=== PATIENT | female | born 1995 | race Caucasian/White ===

== ENCOUNTER → 2019-01-17 | Outpatient (CLI) | payer BC ==
--- NOTE | 2019-01-17 17:20 | Diagnostic Imaging Report ---
PROCEDURE: CT sinuses without contrast TECHNIQUE: Multiple contiguous axial images were obtained through the sinuses without the use of intravenous contrast. Coronal and sagittal reformations were then performed. Auto Exposure Controls were utilized during the CT exam to meet ALARA standards for radiation dose reduction. INDICATION: Sinusitis and frontal region headaches FINDINGS: Paranasal sinuses are clear without evidence of air-fluid level or mural thickening. There is no evidence of bone destruction. There is rightward bowing of the nasal septum with rightward nasal septal spurring. This does result in narrowing of the right ostiomeatal complex however no obstruction of either ostiomeatal complex is seen. There is no evidence of facial inflammation or fluid collection. Temporomandibular joints appear to be unremarkable. IMPRESSION: No paranasal sinus disease. There is rightward deviation of the nasal septum. Dictated by: Dictated on workstation # [id number]
== END ==
LOC: RAD 16:38
PROVIDERS: ATTEND Otolaryngology Otolaryngology/Facial Plastic Surgery
DX: J32.9 Chronic sinusitis, unspecified (principal); J34.2 Deviated nasal septum
CPT/HCPCS: 70486

== ENCOUNTER 2019-04-19 05:38 | Outpatient (CLI) | payer BC ==
[~2019-04-19] VITALS: Ht 167.6 cm; Wt 79.4 kg
[2019-04-19] MEDS ORDERED: SERT50TA2 PO (11:50)
[2019-04-19] MEDS ORDERED: TIZA4CAP8 PO (11:50)
== END 2019-04-19 12:00 | disposition home or self-care (01) ==
LOC: PREOP 05:38
PROVIDERS: ATTEND Otolaryngology Otolaryngology/Facial Plastic Surgery
DX: Z01.818 Encounter for other preprocedural examination (principal)

== ENCOUNTER 2019-04-21 07:29 | Day surgery (SDC) | payer BC ==
[2019-04-21] VITALS (12 sets, daily range): BP systolic 102–132; BP diastolic 45–80
[~2019-04-21] VITALS: Ht 167.6 cm; Wt 79.4 kg
[~2019-04-21 07:29] MED LIST: SERT50TA2 PO; TIZA4CAP8 PO
--- OUTSIDE RECORDS SUMMARY | 2019-04-21 07:32 | XMS REPORT ---
Author Author EUSEBIO PAK Organization [facility] Address [address] [place] [address] Care Team Providers Care Cutter In Name Role Phone EUSEBIO PAK Unavailable PROBLEMS Type Condition ICD9-CM Code EYL66-II Code Onset Dates Condition Status SNOMED Code Problem Contact with and (suspected) exposure to potentially hazardous body fluids Z77.21 Active 826663389 Problem Other chronic pain G89.29 Active 56433677 Problem Major depressive disorder, single episode, unspecified F32.9 Active 14011656 Problem Obsessive-compulsive disorder with good or fair insight F42.9 Active 787345151 Problem Primary dysmenorrhea N94.4 Active 480086321 Problem YASHIRA (generalized anxiety disorder) F41.1 Active 47513872 Problem Mild episode of recurrent major depressive disorder F33.0 Active 239824154 ALLERGIES No Known Allergies ENCOUNTERS Encounter Location Date Diagnosis [place] [id number] [place] [address] Aug, [place] [id number] [place] [address] Aug, [place] [id number] [place] [address] Aug, Exercise counseling Z71.82 [place] [address] [place] [address] Aug, Exercise counseling Z71.82 [place] [address] [address] Jul, Obsessive-compulsive disorder with good or fair insight F42.9 ; Mild episode of recurrent major depressive disorder F33.0 and YASHIRA (generalized anxiety disorder) F41.1 [place] [id number] [place] [address] Jul, Exercise counseling Z71.82 [place] [id number] [place] [address] Jul, Dorsalgia, unspecified M54.9 and Other chronic pain G89.29 [place] [id number] [place] [address] Jul, [facility] [address] [address] Jul, Obsessive-compulsive disorder with good or fair insight F42.9 ; YASHIRA (generalized anxiety disorder) F41.1 and Mild episode of recurrent major depressive disorder F33.0 [place] [id number] [place] [address] Jul, Muscle spasm M62.838 ; Segmental and somatic dysfunction of cervical region M99.01 ; Segmental and somatic dysfunction of lumbar region M99.03 ; Segmental and somatic dysfunction of thoracic region M99.02 ; Segmental and somatic dysfunction of sacral region M99.04 and Somatic dysfunction of pelvis region M99.05 [place] [id number] [place] [address] Jul, Encounter for immunization Z23 [facility] [id number] [place] [address] Jul, Other fatigue R53.83 and Major depressive disorder, single episode, unspecified F32.9 [facility] [id number] [place] [address] Jun, Obsessive-compulsive disorder with good or fair insight F42.9 [facility] [id number] [place] [address] May, Obsessive-compulsive disorder with good or fair insight F42.9 ; YASHIRA (generalized anxiety disorder) F41.1 and Mild episode of recurrent major depressive disorder F33.0 [place] [id number] [place] [address] May, [place] [id number] [place] [address] Apr, Cervicalgia M54.2 [place] [id number] [place] [address] Apr, Obsessive-compulsive disorder with good or fair insight F42.9 ; YASHIRA (generalized anxiety disorder) F41.1 and Mild episode of recurrent major depressive disorder F33.0 [place] [id number] [place] [address] 13 Mar, 2018 Obsessive-compulsive disorder with good or fair insight F42.9 ; YASHIRA (generalized anxiety disorder) F41.1 and Mild episode of recurrent major depressive disorder F33.0 [place] [id number] [place] [address] 11 Mar, 2018 Obsessive-compulsive disorder with good or fair insight F42.9 [place] [id number] [place] [address] Jan, Primary dysmenorrhea N94.4 [place] [address] [address] Aug, Encounter for immunization Z23 [place] [id number] [place] [address] Aug, Dysthymia F34.1 [place] [id number] [place] [address] Jul, Dysthymia F34.1 [place] [id number] [place] [address] Jun, Contact with and (suspected) exposure to potentially hazardous body fluids Z77.21 [facility] [id number] [id number] Apr, Ecchymosis R58 [facility] [id number] [id number] Apr, Ecchymosis R58 [facility] [id number] [place] [address] 29 Jan, 2017 Insect bite (nonvenomous) of right ear, initial encounter S00.461A [place] [address] [address] 13 Dec, 2016 Contact with and (suspected) exposure to potentially hazardous body fluids Z77.21 [place] [address] [address] 08 Dec, 2016 Mixed obsessional thoughts and acts F42.2 [place] [address] [address] 02 Dec, 2016 Mixed obsessional thoughts and acts F42.2 and Needlestick injury accident, initial encounter W27.3XXA [place] [address] [address] 23 Nov, 2016 Dental examination Z01.20 [place] [address] [address] 20 Sep, 2016 Acute left-sided low back pain with left-sided sciatica M54.42 [facility] [address] [address] 08 Jun, 2016 Needle stick injury, initial encounter W27.3XXA IMMUNIZATIONS No Known Immunizations SOCIAL HISTORY Never Assessed REASON FOR VISIT back pain f/u Pt in for f/u on back pain and has a sinus question WENCESLAO Brown PLAN OF CARE Activity Details Follow Up prn Reason: VITAL SIGNS Height 65 in 2018-08-18 Weight 168.3 lbs 2018-08-18 Temperature 98.2 degrees Fahrenheit 2018-08-18 Heart Rate 76 bpm 2018-08-18 Respiratory Rate 18 2018-08-18 BMI 28.00 kg/m2 2018-08-18 Blood pressure systolic 128 mmHg 2018-08-18 Blood pressure diastolic 66 mmHg 2018-08-18 MEDICATIONS Medication Instructions Dosage Frequency Start Date End Date Duration Status Naprosyn 500 mg Orally every 12 hrs 1 tablet with food or milk starting 1 day before menstrual cycle and continue for 3-4 days 12h 27 Jan, 2018 Active Tizanidine HCl 4 MG Orally Three times a day 1 tablet as needed 8h 09 Jul, 2018 Jan, 30 days Active Sertraline HCl 50 MG Orally nightly 1 tablet May, Active RESULTS Name Result Date Reference Range Xray : Spine, Thoracic 2 views (IN HOUSE) 2018-08-18 Xray : Spine, Lumbar 2-3 views (IN HOUSE) 2018-08-18 Xray : Spine, Cervical (IN HOUSE) 2018-08-18 PROCEDURES Procedure Date Ordered Result Body Site X-RAY EXAM OF NECK SPINE Aug 18, 2018 X-RAY EXAM OF LOWER SPINE Aug 18, 2018 X-RAY EXAM OF THORACIC SPINE Aug 18, 2018 INSTRUCTIONS MEDICATIONS ADMINISTERED No Known Medications MEDICAL (GENERAL) HISTORY Type Description Date Surgical History Tonsilectomy 2014
--- OUTSIDE RECORDS SUMMARY | 2019-04-21 07:32 | XMS REPORT ---
Author Author HAYLEY BERNABE Organization [facility] Address [address] [place] [address] Care Team Providers Care Reference Investigator Name Role Phone HAYLEY, BERNABE Unavailable PROBLEMS Type Condition ICD9-CM Code XNU76-IK Code Onset Dates Condition Status SNOMED Code Problem Contact with and (suspected) exposure to potentially hazardous body fluids Z77.21 Active 829533162 Problem Other chronic pain G89.29 Active 08822010 Problem Major depressive disorder, single episode, unspecified F32.9 Active 35279802 Problem Obsessive-compulsive disorder with good or fair insight F42.9 Active 967308432 Problem Primary dysmenorrhea N94.4 Active 124057798 Problem YASHIRA (generalized anxiety disorder) F41.1 Active 00544938 Problem Mild episode of recurrent major depressive disorder F33.0 Active 553488470 ALLERGIES No Known Allergies ENCOUNTERS Encounter Location Date Diagnosis [facility] [address] [address] Aug, [facility] [id number] [place] [address] Aug, [place] [address] [address] Aug, Exercise counseling Z71.82 [facility] [id number] [place] [address] Aug, Exercise counseling Z71.82 [place] [address] [address] Jul, Obsessive-compulsive disorder with good or fair insight F42.9 ; Mild episode of recurrent major depressive disorder F33.0 and YASHIRA (generalized anxiety disorder) F41.1 [facility] [id number] [place] [address] Jul, Exercise counseling Z71.82 [facility] [id number] [place] [address] Jul, Dorsalgia, unspecified M54.9 and Other chronic pain G89.29 [facility] [id number] [place] [address] Jul, [facility] [id number] [place] [address] Jul, Obsessive-compulsive disorder with good or fair insight F42.9 ; YASHIRA (generalized anxiety disorder) F41.1 and Mild episode of recurrent major depressive disorder F33.0 [place] [id number] [place] [address] Jul, Muscle spasm M62.838 ; Segmental and somatic dysfunction of cervical region M99.01 ; Segmental and somatic dysfunction of lumbar region M99.03 ; Segmental and somatic dysfunction of thoracic region M99.02 ; Segmental and somatic dysfunction of sacral region M99.04 and Somatic dysfunction of pelvis region M99.05 [facility] [id number] [place] [address] Jul, Encounter for immunization Z23 [facility] [id number] [place] [address] Jul, Other fatigue R53.83 and Major depressive disorder, single episode, unspecified F32.9 [facility] [id number] [place] [address] Jun, Obsessive-compulsive disorder with good or fair insight F42.9 [facility] [id number] [place] [address] May, Obsessive-compulsive disorder with good or fair insight F42.9 ; YASHIRA (generalized anxiety disorder) F41.1 and Mild episode of recurrent major depressive disorder F33.0 [facility] [id number] [place] [address] May, [facility] [id number] [place] [address] Apr, Cervicalgia M54.2 [place] [id number] [place] [address] Apr, Obsessive-compulsive disorder with good or fair insight F42.9 ; YASHIRA (generalized anxiety disorder) F41.1 and Mild episode of recurrent major depressive disorder F33.0 [place] [id number] [place] [address] 13 Mar, 2018 Obsessive-compulsive disorder with good or fair insight F42.9 ; YASHIRA (generalized anxiety disorder) F41.1 and Mild episode of recurrent major depressive disorder F33.0 [place] [id number] [place] [address] 11 Mar, 2018 Obsessive-compulsive disorder with good or fair insight F42.9 [place] [id number] [place] [address] Jan, Primary dysmenorrhea N94.4 [place] [id number] [place] [address] Aug, Encounter for immunization Z23 [place] [id number] [place] [address] Aug, Dysthymia F34.1 [place] [id number] [place] [address] Jul, Dysthymia F34.1 [place] [id number] [place] [address] Jun, Contact with and (suspected) exposure to potentially hazardous body fluids Z77.21 [facility] [id number] [id number] Apr, Ecchymosis R58 [facility] [id number] [facility] [id number] Apr, Ecchymosis R58 [facility] [id number] [place] [address] Jan, Insect bite (nonvenomous) of right ear, initial encounter S00.461A [place] [address] [address] 13 Dec, 2016 Contact with and (suspected) exposure to potentially hazardous body fluids Z77.21 [place] [address] [address] 08 Dec, 2016 Mixed obsessional thoughts and acts F42.2 [place] [address] [address] 02 Dec, 2016 Mixed obsessional thoughts and acts F42.2 and Needlestick injury accident, initial encounter W27.3XXA [place] [address] [address] 23 Nov, 2016 Dental examination Z01.20 [place] [address] [address] Sep, Acute left-sided low back pain with left-sided sciatica M54.42 [facility] [address] [address] 08 Jun, 2016 Needle stick injury, initial encounter W27.3XXA IMMUNIZATIONS No Known Immunizations SOCIAL HISTORY Never Assessed REASON FOR VISIT f/u Luciano PLAN OF CARE Activity Details Follow Up 4 Weeks Reason: f/u VITAL SIGNS Height 65 in 2018-08-25 Weight 166.4 lbs 2018-08-25 Heart Rate 120 bpm 2018-08-25 Respiratory Rate 20 2018-08-25 BMI 27.69 kg/m2 2018-08-25 Blood pressure systolic 116 mmHg 2018-08-25 Blood pressure diastolic 68 mmHg 2018-08-25 MEDICATIONS Medication Instructions Dosage Frequency Start Date End Date Duration Status Tizanidine HCl 4 MG Orally Three times a day 1 tablet as needed 8h Jul, Jan, 30 days Active Naprosyn 500 mg Orally every 12 hrs 1 tablet with food or milk starting 1 day before menstrual cycle and continue for 3-4 days 12h Jan, Active Zoloft 100 mg Orally Once a day 1 tablet 24h Jul, 30 day(s) Active RESULTS No Results PROCEDURES No Known procedures INSTRUCTIONS MEDICATIONS ADMINISTERED No Known Medications MEDICAL (GENERAL) HISTORY Type Description Date Surgical History Tonsilectomy 2015
--- OUTSIDE RECORDS SUMMARY | 2019-04-21 07:32 | XMS REPORT ---
Author Author CAROLIN LUIS ALBERTO Organization [facility] Address [address] [place] [address] Care Team Providers Care Mill Oiler Name Role Phone AKOSUALIO LUIS ALBERTO Unavailable PROBLEMS Type Condition ICD9-CM Code PLL56-TA Code Onset Dates Condition Status SNOMED Code Problem Contact with and (suspected) exposure to potentially hazardous body fluids Z77.21 Active 925028297 Problem Other chronic pain G89.29 Active 06705992 Problem Major depressive disorder, single episode, unspecified F32.9 Active 50650837 Problem Obsessive-compulsive disorder with good or fair insight F42.9 Active 515635685 Problem Primary dysmenorrhea N94.4 Active 188361398 Problem YASHIRA (generalized anxiety disorder) F41.1 Active 60175864 Problem Mild episode of recurrent major depressive disorder F33.0 Active 692873789 ALLERGIES No Information ENCOUNTERS Encounter Location Date Diagnosis [place] [address] [place] [address] Aug, Obsessive-compulsive disorder with good or fair insight F42.9 ; YASHIRA (generalized anxiety disorder) F41.1 and Mild episode of recurrent major depressive disorder F33.0 [place] [address] [place] [address] 16 Aug, 2018 Exercise counseling Z71.82 [facility] [address] [place] [address] Aug, Exercise counseling Z71.82 [place] [id number] [place] [address] Aug, Exercise counseling Z71.82 [place] [address] [place] [address] Aug, Exercise counseling Z71.82 [place] [id number] [place] [address] Jul, Obsessive-compulsive disorder with good or fair insight F42.9 ; Mild episode of recurrent major depressive disorder F33.0 and YASHIRA (generalized anxiety disorder) F41.1 [facility] [id number] [place] [address] Jul, Exercise counseling Z71.82 [place] [address] [address] Jul, Dorsalgia, unspecified M54.9 and Other chronic pain G89.29 [place] [id number] [place] [address] Jul, [place] [id number] [place] [address] Jul, Obsessive-compulsive disorder with good or fair insight F42.9 ; YASHIRA (generalized anxiety disorder) F41.1 and Mild episode of recurrent major depressive disorder F33.0 [place] [id number] [place] [address] Jul, Muscle spasm M62.838 ; Segmental and somatic dysfunction of cervical region M99.01 ; Segmental and somatic dysfunction of lumbar region M99.03 ; Segmental and somatic dysfunction of thoracic region M99.02 ; Segmental and somatic dysfunction of sacral region M99.04 and Somatic dysfunction of pelvis region M99.05 [facility] [id number] [place] [address] Jul, Encounter for immunization Z23 [facility] [id number] [place] [address] Jul, Other fatigue R53.83 and Major depressive disorder, single episode, unspecified F32.9 [facility] [id number] [place] [address] Jun, Obsessive-compulsive disorder with good or fair insight F42.9 [facility] [id number] [place] [address] May, Obsessive-compulsive disorder with good or fair insight F42.9 ; YASHIRA (generalized anxiety disorder) F41.1 and Mild episode of recurrent major depressive disorder F33.0 [place] [id number] [place] [address] May, [place] [id number] [place] [address] Apr, Cervicalgia M54.2 [place] [address] [address] Apr, Obsessive-compulsive disorder with good or fair insight F42.9 ; YASHIRA (generalized anxiety disorder) F41.1 and Mild episode of recurrent major depressive disorder F33.0 [place] [id number] [place] [address] 13 Mar, 2018 Obsessive-compulsive disorder with good or fair insight F42.9 ; YASHIRA (generalized anxiety disorder) F41.1 and Mild episode of recurrent major depressive disorder F33.0 [place] [id number] [place] [address] Mar, Obsessive-compulsive disorder with good or fair insight F42.9 [place] [id number] [place] [address] Jan, Primary dysmenorrhea N94.4 [place] [id number] [place] [address] Aug, Encounter for immunization Z23 [place] [id number] [place] [address] 02 Aug, 2017 Dysthymia F34.1 [place] [address] [address] 05 Jul, 2017 Dysthymia F34.1 [place] [id number] [place] [address] 22 Jun, 2017 Contact with and (suspected) exposure to potentially hazardous body fluids Z77.21 [place] [id number] [id number] Apr, Ecchymosis R58 [facility] [id number] [place] [id number] Apr, Ecchymosis R58 [facility] [id number] [place] [address] Jan, Insect bite (nonvenomous) of right ear, initial encounter S00.461A [facility] [address] [address] 13 Dec, 2016 Contact with and (suspected) exposure to potentially hazardous body fluids Z77.21 [place] [address] [address] 08 Dec, 2016 Mixed obsessional thoughts and acts F42.2 [place] [address] [address] Dec, Mixed obsessional thoughts and acts F42.2 and Needlestick injury accident, initial encounter W27.3XXA [place] [address] [address] Nov, Dental examination Z01.20 [place] [id number] [place] [address] Sep, Acute left-sided low back pain with left-sided sciatica M54.42 [facility] [id number] [place] [address] 08 Jun, 2016 Needle stick injury, initial encounter W27.3XXA IMMUNIZATIONS No Known Immunizations SOCIAL HISTORY Never Assessed REASON FOR VISIT f/u Kyle rodriguez ma PLAN OF CARE Activity Details Follow Up 4 Weeks Reason: VITAL SIGNS Height 65 in 2018-09-23 Heart Rate 88 bpm 2018-09-23 Respiratory Rate 20 2018-09-23 Blood pressure systolic 130 mmHg 2018-09-23 Blood pressure diastolic 72 mmHg 2018-09-23 MEDICATIONS Medication Instructions Dosage Frequency Start Date End Date Duration Status Zoloft 100 mg Orally Once a day 1.5 tablet 24h Jul, 30 days Active Naprosyn 500 mg Orally every 12 hrs 1 tablet with food or milk starting 1 day before menstrual cycle and continue for 3-4 days 12h Jan, Active Tizanidine HCl 4 MG Orally Three times a day 1 tablet as needed 8h Jul, Jan, 30 days Active RESULTS No Results PROCEDURES No Known procedures INSTRUCTIONS MEDICATIONS ADMINISTERED No Known Medications MEDICAL (GENERAL) HISTORY Type Description Date Surgical History Tonsilectomy 2014
--- OUTSIDE RECORDS SUMMARY | 2019-04-21 07:32 | XMS REPORT ---
Author Author EUSEBIO PAK Organization [facility] Address [address] [place] [address] Care Team Providers Care Brick Chimney Supervisor Name Role Phone EUSEBIO PAK Unavailable PROBLEMS Type Condition ICD9-CM Code PEE27-YE Code Onset Dates Condition Status SNOMED Code Problem Contact with and (suspected) exposure to potentially hazardous body fluids Z77.21 Active 405772242 Problem Other chronic pain G89.29 Active 79861349 Problem Major depressive disorder, single episode, unspecified F32.9 Active 78726267 Problem Obsessive-compulsive disorder with good or fair insight F42.9 Active 564337990 Problem Primary dysmenorrhea N94.4 Active 992903582 Problem YASHIRA (generalized anxiety disorder) F41.1 Active 17268783 Problem Mild episode of recurrent major depressive disorder F33.0 Active [id number] ALLERGIES No Information ENCOUNTERS Encounter Location Date Diagnosis [place] [id number] [place] [phone] Aug, [place] [id number] [place] [address] Aug, [place] [id number] [place] [address] Aug, Exercise counseling Z71.82 [place] [id number] [place] [address] Aug, Exercise counseling Z71.82 [place] [address] [address] Jul, Obsessive-compulsive disorder with good or fair insight F42.9 ; Mild episode of recurrent major depressive disorder F33.0 and YASHIRA (generalized anxiety disorder) F41.1 [place] [id number] [place] [address] Jul, Exercise counseling Z71.82 [facility] [id number] [place] [address] Jul, Dorsalgia, unspecified M54.9 and Other chronic pain G89.29 [facility] [id number] [place] [address] Jul, [facility] [id number] [place] [address] Jul, Obsessive-compulsive disorder with good or fair insight F42.9 ; YASHIRA (generalized anxiety disorder) F41.1 and Mild episode of recurrent major depressive disorder F33.0 [place] [id number] [place] [address] Jul, Muscle spasm M62.838 ; Segmental and somatic dysfunction of cervical region M99.01 ; Segmental and somatic dysfunction of lumbar region M99.03 ; Segmental and somatic dysfunction of thoracic region M99.02 ; Segmental and somatic dysfunction of sacral region M99.04 and Somatic dysfunction of pelvis region M99.05 [facility] [id number] [place] [address] Jul, Encounter for immunization Z23 [facility] [id number] [place] [address] Jul, Other fatigue R53.83 and Major depressive disorder, single episode, unspecified F32.9 [facility] [id number] [place] [address] Jun, Obsessive-compulsive disorder with good or fair insight F42.9 [facility] [id number] [place] [address] May, Obsessive-compulsive disorder with good or fair insight F42.9 ; YASHIRA (generalized anxiety disorder) F41.1 and Mild episode of recurrent major depressive disorder F33.0 [facility] [id number] [place] [address] May, [facility] [id number] [place] [address] Apr, Cervicalgia M54.2 [place] [id number] [place] [address] Apr, Obsessive-compulsive disorder with good or fair insight F42.9 ; YASHIRA (generalized anxiety disorder) F41.1 and Mild episode of recurrent major depressive disorder F33.0 [place] [id number] [place] [address] 13 Mar, 2018 Obsessive-compulsive disorder with good or fair insight F42.9 ; YASHIRA (generalized anxiety disorder) F41.1 and Mild episode of recurrent major depressive disorder F33.0 [place] [id number] [place] [address] 11 Mar, 2018 Obsessive-compulsive disorder with good or fair insight F42.9 [place] [id number] [place] [address] Jan, Primary dysmenorrhea N94.4 [place] [id number] [place] [address] Aug, Encounter for immunization Z23 [place] [id number] [place] [address] Aug, Dysthymia F34.1 [place] [id number] [place] [address] Jul, Dysthymia F34.1 [place] [id number] [place] [address] Jun, Contact with and (suspected) exposure to potentially hazardous body fluids Z77.21 [facility] [id number] [id number] Apr, [facility]ymosis R58 [facility] [id number] [place] [id number] Apr, Ecchymosis R58 [facility] [id number] [place] [address] Jan, Insect bite (nonvenomous) of right ear, initial encounter S00.461A [place] [address] [address] 13 Dec, 2016 Contact with and (suspected) exposure to potentially hazardous body fluids Z77.21 [place] [address] [address] 08 Dec, 2016 Mixed obsessional thoughts and acts F42.2 [place] [address] [address] 02 Dec, 2016 Mixed obsessional thoughts and acts F42.2 and Needlestick injury accident, initial encounter W27.3XXA [place] [id number] [place] [address] 23 Nov, 2016 Dental examination Z01.20 [place] [address] [address] Sep, Acute left-sided low back pain with left-sided sciatica M54.42 [facility] [address] [address] 08 Jun, 2016 Needle stick injury, initial encounter W27.3XXA IMMUNIZATIONS No Known Immunizations SOCIAL HISTORY Never Assessed REASON FOR VISIT back pain PLAN OF CARE Activity Details Follow Up 1 Week Reason: VITAL SIGNS MEDICATIONS Unknown Medications RESULTS No Results PROCEDURES No Known procedures INSTRUCTIONS MEDICATIONS ADMINISTERED No Known Medications MEDICAL (GENERAL) HISTORY Type Description Date Surgical History Tonsilectomy 2014
--- OUTSIDE RECORDS SUMMARY | 2019-04-21 07:32 | XMS REPORT ---
Author Author PAM PHIPPS [facility] Address [address] [place] [address] Care Team Providers Care Glove Maker Name Role Phone PAM PHIPPS Unavailable PROBLEMS Type Condition ICD9-CM Code QHE21-WT Code Onset Dates Condition Status SNOMED Code Problem Contact with and (suspected) exposure to potentially hazardous body fluids Z77.21 Active 215684435 Problem Primary dysmenorrhea N94.4 Active 409672865 Problem Other chronic pain G89.29 Active 97260287 Problem Chronic sinusitis, unspecified location J32.9 Active 92634378 Problem Obsessive-compulsive disorder with good or fair insight F42.9 Active 981972885 Problem Mild episode of recurrent major depressive disorder F33.0 Active 201752286 Problem YASHIRA (generalized anxiety disorder) F41.1 Active 08249746 Problem Major depressive disorder, single episode, unspecified F32.9 Active 49119756 ALLERGIES No Information ENCOUNTERS Encounter Location Date Diagnosis [place] [id number] [place] [phone] Jan, [place] [id number] [place] [address] Jan, Cough R05 [place] [id number] [place] [address] Dec, Elevated LFTs R94.5 [place] [id number] [place] [address] Dec, Cervicalgia M54.2 and Cervical adenopathy R59.0 [place] [id number] [place] [address] Nov, Visit for TB skin test Z11.1 [place] [address] [place] [address] 06 Nov, 2018 Deviated septum J34.2 and Chronic sinusitis, unspecified location J32.9 [place] [address] [address] Oct, Obsessive-compulsive disorder with good or fair insight F42.9 ; YASHIRA (generalized anxiety disorder) F41.1 and Mild episode of recurrent major depressive disorder F33.0 [place] [address] [address] Oct, Muscle spasm M62.838 [place] [address] [address] Aug, Obsessive-compulsive disorder with good or fair insight F42.9 ; YASHIRA (generalized anxiety disorder) F41.1 and Mild episode of recurrent major depressive disorder F33.0 [place] [address] [address] 16 Aug, 2018 Exercise counseling Z71.82 [place] [address] [address] Aug, Exercise counseling Z71.82 [place] [address] [address] Aug, Exercise counseling Z71.82 [place] [id number] [place] [address] Aug, Exercise counseling Z71.82 [place] [address] [address] Jul, Obsessive-compulsive disorder with good or fair insight F42.9 ; Mild episode of recurrent major depressive disorder F33.0 and YASHIRA (generalized anxiety disorder) F41.1 [place] [id number] [place] [address] Jul, Exercise counseling Z71.82 [place] [address] [address] Jul, Dorsalgia, unspecified M54.9 and Other chronic pain G89.29 [facility] [place] [id number] [place] [address] Jul, [facility] [place] [id number] [place] [address] Jul, Obsessive-compulsive disorder with good or fair insight F42.9 ; YASHIRA (generalized anxiety disorder) F41.1 and Mild episode of recurrent major depressive disorder F33.0 [facility] [place] [id number] [place] [address] Jul, Muscle spasm M62.838 ; Segmental and somatic dysfunction of cervical region M99.01 ; Segmental and somatic dysfunction of lumbar region M99.03 ; Segmental and somatic dysfunction of thoracic region M99.02 ; Segmental and somatic dysfunction of sacral region M99.04 and Somatic dysfunction of pelvis region M99.05 [place] [id number] [place] [address] Jul, Encounter for immunization Z23 [facility] [id number] [place] [address] Jul, Other fatigue R53.83 and Major depressive disorder, single episode, unspecified F32.9 [facility] [place] [id number] [place] [address] Jun, Obsessive-compulsive disorder with good or fair insight F42.9 [facility] [place] [id number] [place] [address] May, Obsessive-compulsive disorder with good or fair insight F42.9 ; YASHIRA (generalized anxiety disorder) F41.1 and Mild episode of recurrent major depressive disorder F33.0 [facility] [place] [id number] [place] [address] May, [facility] [place] [id number] [place] [address] Apr, Cervicalgia M54.2 [facility] [place] [address] [address] 10 Apr, 2018 Obsessive-compulsive disorder with good or fair insight F42.9 ; YASHIRA (generalized anxiety disorder) F41.1 and Mild episode of recurrent major depressive disorder F33.0 [facility] [place] [id number] [place] [address] 13 Mar, 2018 Obsessive-compulsive disorder with good or fair insight F42.9 ; YASHIRA (generalized anxiety disorder) F41.1 and Mild episode of recurrent major depressive disorder F33.0 [facility] [place] [id number] [place] [address] 11 Mar, 2018 Obsessive-compulsive disorder with good or fair insight F42.9 [facility] [place] [id number] [place] [address] 27 Jan, 2018 Primary dysmenorrhea N94.4 [place] [address] [address] Aug, Encounter for immunization Z23 [facility] [place] [id number] [place] [address] Aug, Dysthymia F34.1 [place] [id number] [place] [address] Jul, Dysthymia F34.1 [place] [id number] [place] [address] Jun, Contact with and (suspected) exposure to potentially hazardous body fluids Z77.21 [facility] [id number] [id number] Apr, Ecchymosis R58 [facility] [address] [id number] [id number] Apr, Ecchymosis R58 [facility] [address] [place] [address] Jan, Insect bite (nonvenomous) of right ear, initial encounter S00.461A [facility] [place] [id number] [address] 13 Dec, 2016 Contact with and (suspected) exposure to potentially hazardous body fluids Z77.21 [facility] [place] [id number] [place] [address] 08 Dec, 2016 Mixed obsessional thoughts and acts F42.2 [place] [id number] [place] [address] 02 Dec, 2016 Mixed obsessional thoughts and acts F42.2 and Needlestick injury accident, initial encounter W27.3XXA [facility] [place] [id number] [place] [address] 23 Nov, 2016 Dental examination Z01.20 [place] [id number] [place] [address] Sep, Acute left-sided low back pain with left-sided sciatica M54.42 [facility] [address] [place] [address] 08 Jun, 2016 Needle stick injury, initial encounter W27.3XXA IMMUNIZATIONS No Known Immunizations SOCIAL HISTORY Never Assessed REASON FOR VISIT TB skin test- Silvestre Bhatti RN PLAN OF CARE Activity Details Follow Up 48-72 hours Reason:TB read VITAL SIGNS MEDICATIONS Unknown Medications RESULTS No Results PROCEDURES Procedure Date Ordered Result Body Site TB INTRADERMAL TEST Dec 15, 2018 TB INTRADERMAL 2018-12-15 N/A INSTRUCTIONS MEDICATIONS ADMINISTERED No Known Medications MEDICAL (GENERAL) HISTORY Type Description Date Medical History OCD Medical History PANDAS Medical History Segmented and somatic dysfunction of cervical, lumbar, thoracic, sacral spine Medical History Somatic dysfunction of the sacral region Medical History Muscle Spasm Surgical History Tonsilectomy 2014
--- OUTSIDE RECORDS SUMMARY | 2019-04-21 07:32 | XMS REPORT ---
Author Author EUSEBIO PAK Organization [facility] Address [address] [place] [address] Care Team Providers Care Financial Reporting Specialist Name Role Phone EUSEBIO PAK Unavailable PROBLEMS Type Condition ICD9-CM Code FWG95-VF Code Onset Dates Condition Status SNOMED Code Problem Contact with and (suspected) exposure to potentially hazardous body fluids Z77.21 Active 784588144 Problem Other chronic pain G89.29 Active 88561089 Problem Major depressive disorder, single episode, unspecified F32.9 Active 65508441 Problem Obsessive-compulsive disorder with good or fair insight F42.9 Active 991893849 Problem Primary dysmenorrhea N94.4 Active 091216024 Problem YASHIRA (generalized anxiety disorder) F41.1 Active 43134737 Problem Mild episode of recurrent major depressive disorder F33.0 Active 118257854 ALLERGIES No Information ENCOUNTERS Encounter Location Date Diagnosis [place] [id number] [place] [address] 29 Aug, 2018 [facility] [id number] [place] [address] 16 Aug, 2018 [place] [id number] [place] [address] 12 Aug, 2018 Exercise counseling Z71.82 [facility] [id number] [place] [address] 05 Aug, 2018 Exercise counseling Z71.82 [place] [address] [address] 02 Aug, 2018 Exercise counseling Z71.82 [facility] [id number] [place] [address] Jul, Obsessive-compulsive disorder with good or fair insight F42.9 ; Mild episode of recurrent major depressive disorder F33.0 and YASHIRA (generalized anxiety disorder) F41.1 [facility] [id number] [place] [address] Jul, Exercise counseling Z71.82 [facility] [id number] [place] [address] Jul, Dorsalgia, unspecified M54.9 and Other chronic pain G89.29 [place] [address] [address] Jul, [place] [id number] [place] [address] Jul, Obsessive-compulsive disorder with good or fair insight F42.9 ; YASHIRA (generalized anxiety disorder) F41.1 and Mild episode of recurrent major depressive disorder F33.0 [place] [address] [address] Jul, Muscle spasm M62.838 ; Segmental and somatic dysfunction of cervical region M99.01 ; Segmental and somatic dysfunction of lumbar region M99.03 ; Segmental and somatic dysfunction of thoracic region M99.02 ; Segmental and somatic dysfunction of sacral region M99.04 and Somatic dysfunction of pelvis region M99.05 [facility] [id number] [place] [address] Jul, Encounter for immunization Z23 [facility] [id number] [place] [address] Jul, Other fatigue R53.83 and Major depressive disorder, single episode, unspecified F32.9 [facility] [id number] [place] [address] Jun, Obsessive-compulsive disorder with good or fair insight F42.9 [facility] [id number] [place] [address] May, Obsessive-compulsive disorder with good or fair insight F42.9 ; YASHIRA (generalized anxiety disorder) F41.1 and Mild episode of recurrent major depressive disorder F33.0 [facility] [address] [address] May, [facility] [id number] [place] [address] Apr, Cervicalgia M54.2 [facility] [id number] [place] [address] Apr, Obsessive-compulsive disorder with good or fair insight F42.9 ; YASHIRA (generalized anxiety disorder) F41.1 and Mild episode of recurrent major depressive disorder F33.0 [facility] [id number] [place] [address] 13 Mar, 2018 Obsessive-compulsive disorder with good or fair insight F42.9 ; YASHIRA (generalized anxiety disorder) F41.1 and Mild episode of recurrent major depressive disorder F33.0 [place] [id number] [place] [address] Mar, Obsessive-compulsive disorder with good or fair insight F42.9 [place] [id number] [place] [address] Jan, Primary dysmenorrhea N94.4 [place] [id number] [place] [address] Aug, Encounter for immunization Z23 [facility] [id number] [place] [address] Aug, Dysthymia F34.1 [place] [address] [place] [address] Jul, Dysthymia F34.1 [place] [address] [place] [address] Jun, Contact with and (suspected) exposure to potentially hazardous body fluids Z77.21 [facility] [id number] [id number] Apr, Ecchymosis R58 [facility] [address] [id number] [id number] Apr, Ecchymosis R58 [facility] [id number] [place] [address] Jan, Insect bite (nonvenomous) of right ear, initial encounter S00.461A [place] [address] [place] [address] 13 Dec, 2016 Contact with and (suspected) exposure to potentially hazardous body fluids Z77.21 [place] [address] [place] [address] 08 Dec, 2016 Mixed obsessional thoughts and acts F42.2 [place] [address] [address] 02 Dec, 2016 Mixed obsessional thoughts and acts F42.2 and Needlestick injury accident, initial encounter W27.3XXA [place] [address] [place] [address] Nov, Dental examination Z01.20 [place] [address] [place] [address] Sep, Acute left-sided low back pain with left-sided sciatica M54.42 [facility] [id number] [place] [address] 08 Jun, 2016 Needle stick injury, initial encounter W27.3XXA IMMUNIZATIONS No Known Immunizations SOCIAL HISTORY Never Assessed REASON FOR VISIT pain mgmt PLAN OF CARE Activity Details Follow Up 2 - 3 Days Reason: VITAL SIGNS MEDICATIONS Unknown Medications RESULTS No Results PROCEDURES No Known procedures INSTRUCTIONS MEDICATIONS ADMINISTERED No Known Medications MEDICAL (GENERAL) HISTORY Type Description Date Surgical History Tonsilectomy 2014
--- OUTSIDE RECORDS SUMMARY | 2019-04-21 07:33 | XMS REPORT ---
Author Author HAYLEY BERNABE Organization [facility] Address [address] [place] [address] Care Team Providers Care Cigar Maker Name Role Phone HAYLEY, BERNABE Unavailable PROBLEMS Type Condition ICD9-CM Code [id number] Code Onset Dates Condition Status SNOMED Code Problem Contact with and (suspected) exposure to potentially hazardous body fluids Z77.21 Active 329051317 Problem Other chronic pain G89.29 Active 88666296 Problem Major depressive disorder, single episode, unspecified F32.9 Active 63193353 Problem Obsessive-compulsive disorder with good or fair insight F42.9 Active 362408147 Problem Primary dysmenorrhea N94.4 Active 706666252 Problem YASHIRA (generalized anxiety disorder) F41.1 Active 52197494 Problem Mild episode of recurrent major depressive disorder F33.0 Active 653749493 ALLERGIES No Information ENCOUNTERS Encounter Location Date Diagnosis [facility] [address] [address] Jul, [facility] [address] [address] Jul, [facility] [address] [address] Jul, Dorsalgia, unspecified M54.9 and Other chronic pain G89.29 [facility] [id number] [place] [address] Jul, [facility] [address] [address] 09 Jul, 2018 Obsessive-compulsive disorder with good or fair insight F42.9 ; YASHIRA (generalized anxiety disorder) F41.1 and Mild episode of recurrent major depressive disorder F33.0 [facility] [address] [place] [address] Jul, Muscle spasm M62.838 ; Segmental and somatic dysfunction of cervical region M99.01 ; Segmental and somatic dysfunction of lumbar region M99.03 ; Segmental and somatic dysfunction of thoracic region M99.02 ; Segmental and somatic dysfunction of sacral region M99.04 and Somatic dysfunction of pelvis region M99.05 [facility] [id number] [place] [address] Jul, Encounter for immunization Z23 [facility] [address] [address] Jul, Other fatigue R53.83 and Major depressive disorder, single episode, unspecified F32.9 [place] [id number] [place] [address] Jun, Obsessive-compulsive disorder with good or fair insight F42.9 [place] [id number] [place] [address] May, Obsessive-compulsive disorder with good or fair insight F42.9 ; YASHIRA (generalized anxiety disorder) F41.1 and Mild episode of recurrent major depressive disorder F33.0 [place] [id number] [place] [address] May, [place] [id number] [place] [address] Apr, Cervicalgia M54.2 [place] [address] [address] Apr, Obsessive-compulsive disorder with good or fair insight F42.9 ; YASHIRA (generalized anxiety disorder) F41.1 and Mild episode of recurrent major depressive disorder F33.0 [place] [id number] [place] [address] Mar, Obsessive-compulsive disorder with good or fair insight F42.9 ; YASHIRA (generalized anxiety disorder) F41.1 and Mild episode of recurrent major depressive disorder F33.0 [place] [id number] [place] [address] Mar, Obsessive-compulsive disorder with good or fair insight F42.9 [facility] [id number] [place] [address] Jan, Primary dysmenorrhea N94.4 [facility] [id number] [place] [address] 28 Aug, 2017 Encounter for immunization Z23 [facility] [address] [address] 02 Aug, 2017 Dysthymia F34.1 [place] [address] [address] 05 Jul, 2017 Dysthymia F34.1 [place] [id number] [place] [address] 22 Jun, 2017 Contact with and (suspected) exposure to potentially hazardous body fluids Z77.21 [facility] [place] [address] [id number] Apr, Ec[facility]ymosis R58 [facility] [address] [id number] Apr, Ecchymosis R58 [facility] [id number] [place] [address] Jan, Insect bite (nonvenomous) of right ear, initial encounter S00.461A [place] [id number] [place] [address] 13 Dec, 2016 Contact with and (suspected) exposure to potentially hazardous body fluids Z77.21 [facility] [id number] [place] [address] 08 Dec, 2016 Mixed obsessional thoughts and acts F42.2 [place] [id number] [place] [address] 02 Dec, 2016 Mixed obsessional thoughts and acts F42.2 and Needlestick injury accident, initial encounter W27.3XXA [facility] [address] [facility] [id number] [address] Nov, Dental examination Z01.20 [facility] [address] [address] Sep, Acute left-sided low back pain with left-sided sciatica M54.42 [facility] [id number] [address] 08 Jun, 2016 Needle stick injury, initial encounter W27.3XXA IMMUNIZATIONS No Known Immunizations SOCIAL HISTORY Never Assessed REASON FOR VISIT Medication question PLAN OF CARE VITAL SIGNS MEDICATIONS Unknown Medications RESULTS No Results PROCEDURES No Known procedures INSTRUCTIONS MEDICATIONS ADMINISTERED No Known Medications MEDICAL (GENERAL) HISTORY Type Description Date Surgical History Tonsilectomy 2014
--- OUTSIDE RECORDS SUMMARY | 2019-04-21 07:33 | XMS REPORT ---
Author Author CAROLIN LUIS ALBERTO Organization [facility] Address [address] [place] [address] Care Team Providers Care Paint Technician Name Role Phone AKOSUAKATELYNN VACAA Unavailable PROBLEMS Type Condition ICD9-CM Code [id number] Code Onset Dates Condition Status SNOMED Code Problem Major depressive disorder, single episode, unspecified F32.9 Active 18901272 Problem YASHIRA (generalized anxiety disorder) F41.1 Active 35447849 Problem Primary dysmenorrhea N94.4 Active 902765504 Problem Contact with and (suspected) exposure to potentially hazardous body fluids Z77.21 Active 601076943 Problem Mild episode of recurrent major depressive disorder F33.0 Active 815989310 Problem Obsessive-compulsive disorder with good or fair insight F42.9 Active 427406949 ALLERGIES No Information ENCOUNTERS Encounter Location Date Diagnosis [facility] [id number] [place] [address] Aug, [facility] [id number] [place] [address] Jul, Obsessive-compulsive disorder with good or fair insight F42.9 ; YASHIRA (generalized anxiety disorder) F41.1 and Mild episode of recurrent major depressive disorder F33.0 [facility] [id number] [place] [address] Jul, Muscle spasm M62.838 ; Segmental and somatic dysfunction of cervical region M99.01 ; Segmental and somatic dysfunction of lumbar region M99.03 ; Segmental and somatic dysfunction of thoracic region M99.02 ; Segmental and somatic dysfunction of sacral region M99.04 and Somatic dysfunction of pelvis region M99.05 [facility] [address] [place] [address] Jul, Encounter for immunization Z23 [facility] [id number] [place] [address] Jul, Other fatigue R53.83 and Major depressive disorder, single episode, unspecified F32.9 [facility] [id number] [place] [address] Jun, Obsessive-compulsive disorder with good or fair insight F42.9 [place] [address] [address] May, Obsessive-compulsive disorder with good or fair insight F42.9 ; YASHIRA (generalized anxiety disorder) F41.1 and Mild episode of recurrent major depressive disorder F33.0 [place] [address] [address] May, [place] [address] [address] Apr, Cervicalgia M54.2 [place] [address] [address] Apr, Obsessive-compulsive disorder with good or fair insight F42.9 ; YASHIRA (generalized anxiety disorder) F41.1 and Mild episode of recurrent major depressive disorder F33.0 [place] [address] [address] Mar, Obsessive-compulsive disorder with good or fair insight F42.9 ; YASHIRA (generalized anxiety disorder) F41.1 and Mild episode of recurrent major depressive disorder F33.0 [place] [id number] [place] [address] Mar, Obsessive-compulsive disorder with good or fair insight F42.9 [place] [address] [address] Jan, Primary dysmenorrhea N94.4 [place] [address] [address] Aug, Encounter for immunization Z23 [place] [address] [address] 02 Aug, 2017 Dysthymia F34.1 [place] [address] [address] 05 Jul, 2017 Dysthymia F34.1 [place] [address] [address] 22 Jun, 2017 Contact with and (suspected) exposure to potentially hazardous body fluids Z77.21 [facility] [address] [id number] Apr, [facility]osis R58 [facility] [address] [id number] Apr, Ecchymosis R58 [facility] [address] [address] Jan, Insect bite (nonvenomous) of right ear, initial encounter S00.461A [place] [address] [address] 13 Dec, 2016 Contact with and (suspected) exposure to potentially hazardous body fluids Z77.21 [place] [address] [address] 08 Dec, 2016 Mixed obsessional thoughts and acts F42.2 [place] [address] [address] Dec, Mixed obsessional thoughts and acts F42.2 and Needlestick injury accident, initial encounter W27.3XXA [place] [id number] [place] [address] Nov, Dental examination Z01.20 [place] [address] [address] Sep, Acute left-sided low back pain with left-sided sciatica M54.42 [facility] [address] [address] 08 Jun, 2016 Needle stick injury, initial encounter W27.3XXA IMMUNIZATIONS No Known Immunizations SOCIAL HISTORY Never Assessed REASON FOR VISIT BH f/u-AB/WENCESLAO PLAN OF CARE Activity Details Follow Up 4 Weeks Reason: VITAL SIGNS Height 65 in 2018-08-03 Weight 168.5 lbs 2018-08-03 Heart Rate 126 bpm 2018-08-03 Respiratory Rate 20 2018-08-03 BMI 28.04 kg/m2 2018-08-03 Blood pressure systolic 138 mmHg 2018-08-03 Blood pressure diastolic 82 mmHg 2018-08-03 MEDICATIONS Medication Instructions Dosage Frequency Start Date End Date Duration Status Tizanidine HCl 4 MG Orally Three times a day 1 tablet as needed 8h Jul, Jan, 30 days Active Naprosyn 500 mg Orally every 12 hrs 1 tablet with food or milk starting 1 day before menstrual cycle and continue for 3-4 days 12h Jan, Active Sertraline HCl 50 MG Orally nightly 1 tablet May, Active RESULTS No Results PROCEDURES No Known procedures INSTRUCTIONS MEDICATIONS ADMINISTERED No Known Medications MEDICAL (GENERAL) HISTORY Type Description Date Surgical History Tonsilectomy 2014
--- OUTSIDE RECORDS SUMMARY | 2019-04-21 07:33 | XMS REPORT ---
Author Author MARCIA CORBIN Organization [facility] Address [address] [place] [address] Care Team Providers Care Street Sweeper Operator Name Role Phone MARCIA CORBIN Unavailable PROBLEMS Type Condition ICD9-CM Code [id number] Code Onset Dates Condition Status SNOMED Code Problem Major depressive disorder, single episode, unspecified F32.9 Active 85492620 Problem YASHIRA (generalized anxiety disorder) F41.1 Active 89975308 Problem Primary dysmenorrhea N94.4 Active 049408089 Problem Contact with and (suspected) exposure to potentially hazardous body fluids Z77.21 Active 008808827 Problem Mild episode of recurrent major depressive disorder F33.0 Active 401457906 Problem Obsessive-compulsive disorder with good or fair insight F42.9 Active 695363655 ALLERGIES No Known Allergies ENCOUNTERS Encounter Location Date Diagnosis [place] [id number] [place] [address] Aug, [place] [address] [address] Jul, Obsessive-compulsive disorder with good or fair insight F42.9 ; YASHIRA (generalized anxiety disorder) F41.1 and Mild episode of recurrent major depressive disorder F33.0 [facility] [id number] [place] [address] Jul, Muscle spasm M62.838 ; Segmental and somatic dysfunction of cervical region M99.01 ; Segmental and somatic dysfunction of lumbar region M99.03 ; Segmental and somatic dysfunction of thoracic region M99.02 ; Segmental and somatic dysfunction of sacral region M99.04 and Somatic dysfunction of pelvis region M99.05 [place] [id number] [place] [address] Jul, Encounter for immunization Z23 [facility] [address] [place] [address] Jul, Other fatigue R53.83 and Major depressive disorder, single episode, unspecified F32.9 [facility] [id number] [place] [address] Jun, Obsessive-compulsive disorder with good or fair insight F42.9 [facility] [address] [address] May, Obsessive-compulsive disorder with good or fair insight F42.9 ; YASHIRA (generalized anxiety disorder) F41.1 and Mild episode of recurrent major depressive disorder F33.0 [place] [id number] [place] [address] May, [place] [address] [address] Apr, Cervicalgia M54.2 [place] [address] [address] Apr, Obsessive-compulsive disorder with good or fair insight F42.9 ; YASHIRA (generalized anxiety disorder) F41.1 and Mild episode of recurrent major depressive disorder F33.0 [facility] [id number] [place] [address] Mar, Obsessive-compulsive disorder with good or fair insight F42.9 ; YASHIRA (generalized anxiety disorder) F41.1 and Mild episode of recurrent major depressive disorder F33.0 [place] [id number] [place] [address] Mar, Obsessive-compulsive disorder with good or fair insight F42.9 [facility] [id number] [place] [address] Jan, Primary dysmenorrhea N94.4 [facility] [id number] [place] [address] Aug, Encounter for immunization Z23 [place] [id number] [place] [address] Aug, Dysthymia F34.1 [place] [address] [address] 05 Jul, 2017 Dysthymia F34.1 [place] [address] [address] 22 Jun, 2017 Contact with and (suspected) exposure to potentially hazardous body fluids Z77.21 [facility] [address] [phone] Apr, Ecchymosis R58 [facility] [address] [id number] Apr, Ecchymosis R58 [facility] [address] [address] Jan, Insect bite (nonvenomous) of right ear, initial encounter S00.461A [place] [address] [address] 13 Dec, 2016 Contact with and (suspected) exposure to potentially hazardous body fluids Z77.21 [place] [id number] [place] [address] 08 Dec, 2016 Mixed obsessional thoughts and acts F42.2 [place] [id number] [place] [address] Dec, Mixed obsessional thoughts and acts F42.2 and Needlestick injury accident, initial encounter W27.3XXA [place] [id number] [place] [address] Nov, Dental examination Z01.20 [place] [address] [address] Sep, Acute left-sided low back pain with left-sided sciatica M54.42 [facility] [address] [address] Jun, Needle stick injury, initial encounter W27.3XXA IMMUNIZATIONS No Known Immunizations SOCIAL HISTORY Never Assessed REASON FOR VISIT OMM-[facility] PLAN OF CARE Activity Details Follow Up prn Reason: VITAL SIGNS Height 65 in 2018-08-03 Weight 167.7 lbs 2018-08-03 Temperature 98.1 degrees Fahrenheit 2018-08-03 Heart Rate 84 bpm 2018-08-03 Respiratory Rate 18 2018-08-03 BMI 27.90 kg/m2 2018-08-03 Blood pressure systolic 124 mmHg 2018-08-03 Blood pressure diastolic 68 mmHg 2018-08-03 MEDICATIONS Medication Instructions Dosage Frequency [...] 50 MG Orally nightly 1 tablet May, 30 day(s) Active RESULTS No Results PROCEDURES Procedure Date Ordered Result Body Site OSTEOPATHIC MANIPULATION Aug 03, 2018 INSTRUCTIONS MEDICATIONS ADMINISTERED No Known Medications MEDICAL (GENERAL) HISTORY Type Description Date Surgical History Tonsilectomy 2014
--- OUTSIDE RECORDS SUMMARY | 2019-04-21 07:33 | XMS REPORT ---
Author Author ELIZABETH SCHOFIELD Organization [facility] Address [address] [place] [address] Care Team Providers Care Senior Pharmacy Technician Name Role Phone MURRY ELIZABETH CARO Unavailable PROBLEMS Type Condition ICD9-CM Code GMQ74-UN Code Onset Dates Condition Status SNOMED Code Problem Major depressive disorder, single episode, unspecified F32.9 Active 60571784 Problem YASHIRA (generalized anxiety disorder) F41.1 Active 81634045 Problem Primary dysmenorrhea N94.4 Active 036284059 Problem Contact with and (suspected) exposure to potentially hazardous body fluids Z77.21 Active 193357686 Problem Mild episode of recurrent major depressive disorder F33.0 Active 379097685 Problem Obsessive-compulsive disorder with good or fair insight F42.9 Active 072993772 ALLERGIES No Known Allergies ENCOUNTERS Encounter Location Date Diagnosis [place] [id number] [place] [address] Aug, [place] [id number] [place] [address] Jul, Obsessive-compulsive disorder with good or fair insight F42.9 ; YASHIRA (generalized anxiety disorder) F41.1 and Mild episode of recurrent major depressive disorder F33.0 [place] [id number] [place] [address] Jul, Muscle spasm M62.838 ; Segmental and somatic dysfunction of cervical region M99.01 ; Segmental and somatic dysfunction of lumbar region M99.03 ; Segmental and somatic dysfunction of thoracic region M99.02 ; Segmental and somatic dysfunction of sacral region M99.04 and Somatic dysfunction of pelvis region M99.05 [facility] [address] [place] [address] Jul, Encounter for immunization Z23 [facility] [address] [address] Jul, Other fatigue R53.83 and Major depressive disorder, single episode, unspecified F32.9 [facility] [id number] [place] [address] Jun, Obsessive-compulsive disorder with good or fair insight F42.9 [facility] [id number] [place] [address] May, Obsessive-compulsive disorder with good or fair insight F42.9 ; YASHIRA (generalized anxiety disorder) F41.1 and Mild episode of recurrent major depressive disorder F33.0 [place] [id number] [place] [address] May, [place] [id number] [place] [address] Apr, Cervicalgia M54.2 [place] [id number] [place] [address] Apr, Obsessive-compulsive disorder with good or fair insight F42.9 ; YASHIRA (generalized anxiety disorder) F41.1 and Mild episode of recurrent major depressive disorder F33.0 [place] [id number] [place] [address] Mar, Obsessive-compulsive disorder with good or fair insight F42.9 ; YASHIRA (generalized anxiety disorder) F41.1 and Mild episode of recurrent major depressive disorder F33.0 [place] [address] [place] [address] Mar, Obsessive-compulsive disorder with good or fair insight F42.9 [place] [id number] [place] [address] Jan, Primary dysmenorrhea N94.4 [place] [id number] [place] [address] Aug, Encounter for immunization Z23 [place] [id number] [place] [address] 02 Aug, 2017 Dysthymia F34.1 [place] [id number] [place] [address] 05 Jul, 2017 Dysthymia F34.1 [place] [id number] [place] [address] 22 Jun, 2017 Contact with and (suspected) exposure to potentially hazardous body fluids Z77.21 [facility] [place] [id number] [place] [id number] Apr, Ecchymosis R58 [facility] [address] [id number] Apr, Ecchymosis R58 [facility] [id number] [place] [address] Jan, Insect bite (nonvenomous) of right ear, initial encounter S00.461A [place] [address] [address] 13 Dec, 2016 Contact with and (suspected) exposure to potentially hazardous body fluids Z77.21 [place] [id number] [place] [address] 08 Dec, 2016 Mixed obsessional thoughts and acts F42.2 [place] [id number] [place] [address] 02 Dec, 2016 Mixed obsessional thoughts and acts F42.2 and Needlestick injury accident, initial encounter W27.3XXA [place] [id number] [place] [address] Nov, Dental examination Z01.20 [place] [address] [address] 20 Sep, 2016 Acute left-sided low back pain with left-sided sciatica M54.42 [facility] [address] [address] 08 Jun, 2016 Needle stick injury, initial encounter W27.3XXA IMMUNIZATIONS No Known Immunizations SOCIAL HISTORY Never Assessed REASON FOR VISIT has been very lethargic for the past 2 weeks. has been changing her medications around et thinks thats what is causeing it. now has a sore throat since this am. glenn, over the past 2 weeks...pt has increased her zofloft. PLAN OF CARE Activity Details Follow Up prn Reason: VITAL SIGNS Height 65 in 2018-07-26 Weight 165.8 lbs 2018-07-26 Temperature 98.2 degrees Fahrenheit 2018-07-26 Heart Rate 86 bpm 2018-07-26 Respiratory Rate 18 2018-07-26 BMI 27.59 kg/m2 2018-07-26 Blood pressure systolic 112 mmHg 2018-07-26 Blood pressure diastolic 68 mmHg 2018-07-26 MEDICATIONS Medication Instructions Dosage Frequency Start Date [...]
--- OUTSIDE RECORDS SUMMARY | 2019-04-21 07:33 | XMS REPORT ---
Author Author EUSBEIO PAK Organization [facility] Address [address] [place] [address] Care Team Providers Care Heating And Blending Supervisor Name Role Phone EUSEBIO PAK Unavailable PROBLEMS Type Condition ICD9-CM Code SKP36-YZ Code Onset Dates Condition Status SNOMED Code Problem Contact with and (suspected) exposure to potentially hazardous body fluids Z77.21 Active 327777140 Problem Other chronic pain G89.29 Active 01146237 Problem Major depressive disorder, single episode, unspecified F32.9 Active 79736896 Problem Obsessive-compulsive disorder with good or fair insight F42.9 Active 614624954 Problem Primary dysmenorrhea N94.4 Active 883435754 Problem YASHIRA (generalized anxiety disorder) F41.1 Active 23252994 Problem Mild episode of recurrent major depressive disorder F33.0 Active 290176207 ALLERGIES No Information ENCOUNTERS Encounter Location Date Diagnosis [place] [address] [address] Aug, [place] [address] [address] Jul, [place] [address] [address] Jul, Exercise counseling Z71.82 [place] [address] [place] [id number] [place] [address] Jul, Dorsalgia, unspecified M54.9 and Other chronic pain G89.29 [place] [address] [address] Jul, [place] [address] [address] Jul, Obsessive-compulsive disorder with good or fair insight F42.9 ; YASHIRA (generalized anxiety disorder) F41.1 and Mild episode of recurrent major depressive disorder F33.0 [facility] [address] [id number] [place] [address] Jul, Muscle spasm M62.838 ; Segmental and somatic dysfunction of cervical region M99.01 ; Segmental and somatic dysfunction of lumbar region M99.03 ; Segmental and somatic dysfunction of thoracic region M99.02 ; Segmental and somatic dysfunction of sacral region M99.04 and Somatic dysfunction of pelvis region M99.05 [facility] [address] [id number] [place] [address] Jul, Encounter for immunization Z23 [facility] [address] [address] Jul, Other fatigue R53.83 and Major depressive disorder, single episode, unspecified F32.9 [place] [address] [address] Jun, Obsessive-compulsive disorder with good or fair insight F42.9 [place] [address] [id number] [place] [address] May, Obsessive-compulsive disorder with good or fair insight F42.9 ; YASHIRA (generalized anxiety disorder) F41.1 and Mild episode of recurrent major depressive disorder F33.0 [facility] [address] [id number] [place] [address] May, [place] [address] [address] Apr, Cervicalgia M54.2 [place] [address] [place] [id number] [place] [address] Apr, Obsessive-compulsive disorder with good or fair insight F42.9 ; YASHIRA (generalized anxiety disorder) F41.1 and Mild episode of recurrent major depressive disorder F33.0 [facility] [id number] [place] [address] Mar, Obsessive-compulsive disorder with good or fair insight F42.9 ; YASHIRA (generalized anxiety disorder) F41.1 and Mild episode of recurrent major depressive disorder F33.0 [facility] [address] [id number] [place] [address] Mar, Obsessive-compulsive disorder with good or fair insight F42.9 [facility] [address] [id number] [place] [address] Jan, Primary dysmenorrhea N94.4 [facility] [address] [address] Aug, Encounter for immunization Z23 [place] [address] [address] Aug, Dysthymia F34.1 [place] [address] [address] Jul, Dysthymia F34.1 [place] [address] [address] Jun, Contact with and (suspected) exposure to potentially hazardous body fluids Z77.21 [facility] [address] [id number] Apr, Ecchymosis R58 [facility] [address] [id number] Apr, Ecchymosis R58 [facility] [address] [address] Jan, Insect bite (nonvenomous) of right ear, initial encounter S00.461A [facility] [address] [place] [id number] [place] [address] Dec, Contact with and (suspected) exposure to potentially hazardous body fluids Z77.21 [facility] [address] [id number] [place] [address] 08 Dec, 2016 Mixed obsessional thoughts and acts F42.2 [place] [address] [place] [address] Dec, Mixed obsessional thoughts and acts F42.2 and Needlestick injury accident, initial encounter W27.3XXA [facility] [address], [place] [address] 23 Nov, 2016 Dental examination Z01.20 [place] [address] [place] [address] Sep, Acute left-sided low back pain with left-sided sciatica M54.42 [facility] [address] [place] [id number] [address] 08 Jun, 2016 Needle stick injury, initial encounter W27.3XXA IMMUNIZATIONS No Known Immunizations SOCIAL HISTORY Never Assessed REASON FOR VISIT Fitness Eval PLAN OF CARE Activity Details Follow Up 2 - 3 Days Reason: VITAL SIGNS MEDICATIONS Unknown Medications RESULTS No Results PROCEDURES No Known procedures INSTRUCTIONS MEDICATIONS ADMINISTERED No Known Medications MEDICAL (GENERAL) HISTORY Type Description Date Surgical History Tonsilectomy 2015
--- OUTSIDE RECORDS SUMMARY | 2019-04-21 07:33 | XMS REPORT ---
Author Author EUSEBIO PAK Organization [facility] Address [address] [place] [address] Care Team Providers Care Philatelic Consultant Name Role Phone EUSEBIO PAK Unavailable PROBLEMS Type Condition ICD9-CM Code LEE32-NB Code Onset Dates Condition Status SNOMED Code Problem Contact with and (suspected) exposure to potentially hazardous body fluids Z77.21 Active 794374922 Problem Other chronic pain G89.29 Active 08323168 Problem Major depressive disorder, single episode, unspecified F32.9 Active 37662570 Problem Obsessive-compulsive disorder with good or fair insight F42.9 Active 313816374 Problem Primary dysmenorrhea N94.4 Active 394019508 Problem YASHIRA (generalized anxiety disorder) F41.1 Active 45105860 Problem Mild episode of recurrent major depressive disorder F33.0 Active 116649218 ALLERGIES No Information ENCOUNTERS Encounter Location Date Diagnosis [place] [address] [address] Aug, [facility] [address] [place] [id number] [place] [address] Aug, [facility] [address] [place] [address] [id number] [place] [address] Aug, Exercise counseling Z71.82 [facility] [address] [id number] [place] [address] Jul, Obsessive-compulsive disorder with good or fair insight F42.9 ; Mild episode of recurrent major depressive disorder F33.0 and YASHIRA (generalized anxiety disorder) F41.1 [facility] [address] [id number] [place] [address] Jul, Exercise counseling Z71.82 [place] [address] [address] Jul, Dorsalgia, unspecified M54.9 and Other chronic pain G89.29 [facility] [address] [id number] [place] [address] Jul, [facility] [address] [id number] [place] [address] Jul, Obsessive-compulsive disorder with good or fair insight F42.9 ; YASHIRA (generalized anxiety disorder) F41.1 and Mild episode of recurrent major depressive disorder F33.0 [place] [address] [id number] [place] [address] Jul, Muscle spasm M62.838 ; Segmental and somatic dysfunction of cervical region M99.01 ; Segmental and somatic dysfunction of lumbar region M99.03 ; Segmental and somatic dysfunction of thoracic region M99.02 ; Segmental and somatic dysfunction of sacral region M99.04 and Somatic dysfunction of pelvis region M99.05 [place] [address] [address] Jul, Encounter for immunization Z23 [facility] [address] [id number] [place] [address] Jul, Other fatigue R53.83 and Major depressive disorder, single episode, unspecified F32.9 [facility] [address] [id number] [place] [address] Jun, Obsessive-compulsive disorder with good or fair insight F42.9 [facility] [address] [id number] [place] [address] May, Obsessive-compulsive disorder with good or fair insight F42.9 ; YASHIRA (generalized anxiety disorder) F41.1 and Mild episode of recurrent major depressive disorder F33.0 [facility] [address] [id number] [place] [address] May, [facility] [address] [id number] [place] [address] Apr, Cervicalgia M54.2 [facility] [address] [address] 10 Apr, 2018 Obsessive-compulsive disorder with good or fair insight F42.9 ; YASHIRA (generalized anxiety disorder) F41.1 and Mild episode of recurrent major depressive disorder F33.0 [facility] [address] [place] [id number] [place] [address] 13 Mar, 2018 Obsessive-compulsive disorder with good or fair insight F42.9 ; YASHIRA (generalized anxiety disorder) F41.1 and Mild episode of recurrent major depressive disorder F33.0 [facility] [address] [id number] [place] [address] 11 Mar, 2018 Obsessive-compulsive disorder with good or fair insight F42.9 [facility] [address] [place] [id number] [place] [address] 27 Jan, 2018 Primary dysmenorrhea N94.4 [facility] [address] [place] [id number] [place] [address] Aug, Encounter for immunization Z23 [facility] [address] [id number] [place] [address] Aug, Dysthymia F34.1 [place] [address] [id number] [place] [address] 05 Jul, 2017 Dysthymia F34.1 [place] [address] [id number] [place] [address] Jun, Contact with and (suspected) exposure to potentially hazardous body fluids Z77.21 [facility] [id number] [id number] Apr, [facility]ymosis R58 [facility] [address] [place] [id number] [place] [id number] Apr, Ecchymosis R58 [facility] [address] [place] [address] Jan, Insect bite (nonvenomous) of right ear, initial encounter S00.461A [place] [address] [place] [address] 13 Dec, 2016 Contact with and (suspected) exposure to potentially hazardous body fluids Z77.21 [place] [address] [id number] [place] [address] 08 Dec, 2016 Mixed obsessional thoughts and acts F42.2 [place] [address] [address] 02 Dec, 2016 Mixed obsessional thoughts and acts F42.2 and Needlestick injury accident, initial encounter W27.3XXA [place] [address] [place] [id number] [place] [address] 23 Nov, 2016 Dental examination Z01.20 [place] [address] [id number] [place] [address] 20 Sep, 2016 Acute left-sided low back pain with left-sided sciatica M54.42 [facility] [address] [id number] [place] [address] 08 Jun, 2016 Needle stick injury, initial [...]
--- OUTSIDE RECORDS SUMMARY | 2019-04-21 07:34 | XMS REPORT ---
Author Author CAROLINKATELYNNA Organization [facility] Address [address] [place] [address] Care Team Providers Care Building And Grounds Supervisor Name Role Phone AKOSUALUIS ALBERTO VACA Unavailable PROBLEMS Type Condition ICD9-CM Code RIW26-EQ Code Onset Dates Condition Status SNOMED Code Problem YASHIRA (generalized anxiety disorder) F41.1 Active 47129586 Problem Mild episode of recurrent major depressive disorder F33.0 Active 381934951 Problem Contact with and (suspected) exposure to potentially hazardous body fluids Z77.21 Active 990675333 Problem Obsessive-compulsive disorder with good or fair insight F42.9 Active 337892643 Problem Primary dysmenorrhea N94.4 Active 791200003 ALLERGIES No Known Allergies ENCOUNTERS Encounter Location Date Diagnosis [place] [address] [place] [address] Jul, [facility] [address] [place] [address] [id number] [place] [phone] Jul, [place] [address] [place] [address] May, [place] [address] [place] [address] Apr, Cervicalgia M54.2 [place] [address] [place] [id number] [place] [address] Apr, Obsessive-compulsive disorder with good or fair insight F42.9 ; YASHIRA (generalized anxiety disorder) F41.1 and Mild episode of recurrent major depressive disorder F33.0 [facility] [address] [place] [address] Mar, Obsessive-compulsive disorder with good or fair insight F42.9 ; YASHIRA (generalized anxiety disorder) F41.1 and Mild episode of recurrent major depressive disorder F33.0 [facility] [address] [place] [address] Mar, Obsessive-compulsive disorder with good or fair insight F42.9 [facility] [address] [id number] [place] [address] Jan, Primary dysmenorrhea N94.4 [facility] [address] [place] [id number] [place] [address] Aug, Encounter for immunization Z23 [place] [address] [place] [id number] [place] [address] 02 Aug, 2017 Dysthymia F34.1 [place] [address] [place] [id number] [place] [address] 05 Jul, 2017 Dysthymia F34.1 [place] [address] [place] [id number] [place] [address] Jun, Contact with and (suspected) exposure to potentially hazardous body fluids Z77.21 [facility] [address] [place] [address] [id number] [place] [id number] Apr, Ecchymosis R58 [facility] [address] [id number] [place] [phone] Apr, Ecchymosis R58 [facility] [id number] [place] [address] Jan, Insect bite (nonvenomous) of right ear, initial encounter S00.461A [facility] [address] [place] [address] 13 Dec, 2016 Contact with and (suspected) exposure to potentially hazardous body fluids Z77.21 [facility] [address] [place] [id number] [place] [address] 08 Dec, 2016 Mixed obsessional thoughts and acts F42.2 [place] [address] [id number] [place] [address] Dec, Mixed obsessional thoughts and acts F42.2 and Needlestick injury accident, initial encounter W27.3XXA [facility] [address] [facility] [id number] [address] Nov, Dental examination Z01.20 [facility] [address] [place] [id number] [address] Sep, Acute left-sided low back pain with left-sided sciatica M54.42 [facility] [address] [place] [address] [id number] [address] 08 Jun, 2016 Needle stick injury, initial encounter W27.3XXA IMMUNIZATIONS No Known Immunizations SOCIAL HISTORY Never Assessed REASON FOR VISIT intake PLAN OF CARE Activity Details Follow Up 4 Weeks Reason: VITAL SIGNS Height 65 in 2018-04-07 Weight 171 lbs 2018-04-07 BMI 28.45 kg/m2 2018-04-07 Blood pressure systolic 108 mmHg 2018-04-07 Blood pressure diastolic 74 mmHg 2018-04-07 MEDICATIONS Medication Instructions Dosage Frequency Start Date End Date Duration Status Naprosyn 500 mg Orally every 12 hrs 1 tablet with food or milk starting 1 day before menstrual cycle and continue for 3-4 days 12h 27 Jan, 2018 Active Trintellix 20 MG Orally Once a day 1 tablet 24h 30 days Active RESULTS No Results PROCEDURES No Known procedures INSTRUCTIONS MEDICATIONS ADMINISTERED No Known Medications MEDICAL (GENERAL) HISTORY Type Description Date Surgical History Tonsilectomy 2014
--- OUTSIDE RECORDS SUMMARY | 2019-04-21 07:34 | XMS REPORT ---
Author Author JARRELL BERNAL Organization [facility] Address [address] [place] [address] Care Team Providers Care Hardwood Sawyer Name Role Phone JARRELL BERNAL Unavailable PROBLEMS Type Condition ICD9-CM Code JFL15-GK Code Onset Dates Condition Status SNOMED Code Problem YASHIRA (generalized anxiety disorder) F41.1 Active 89221586 Problem Mild episode of recurrent major depressive disorder F33.0 Active 091792970 Problem Contact with and (suspected) exposure to potentially hazardous body fluids Z77.21 Active 301929454 Problem Obsessive-compulsive disorder with good or fair insight F42.9 Active 306454090 Problem Primary dysmenorrhea N94.4 Active 084985796 ALLERGIES No Information ENCOUNTERS Encounter Location Date Diagnosis [place] [address] [place] [id number] [place] [address] Jul, [facility] [address] [id number] [place] [address] Jul, [facility] [address] [place] [id number] [place] [address] May, Obsessive-compulsive disorder with good or fair insight F42.9 ; YASHIRA (generalized anxiety disorder) F41.1 and Mild episode of recurrent major depressive disorder F33.0 [facility] [address] [place] [address] May, [facility] [id number] [place] [address] Apr, Cervicalgia M54.2 [facility] [address] [id number] [place] [address] Apr, Obsessive-compulsive disorder with good or fair insight F42.9 ; YASHIRA (generalized anxiety disorder) F41.1 and Mild episode of recurrent major depressive disorder F33.0 [facility] [address] [place] [address] 13 Mar, 2018 Obsessive-compulsive disorder with good or fair insight F42.9 ; YASHIRA (generalized anxiety disorder) F41.1 and Mild episode of recurrent major depressive disorder F33.0 [facility] [address] [id number] [place] [address] 11 Mar, 2018 Obsessive-compulsive disorder with good or fair insight F42.9 [facility] [id number] [place] [address] Jan, Primary dysmenorrhea N94.4 [place] [address] [id number] [place] [address] 28 Aug, 2017 Encounter for immunization Z23 [facility] [address] [address] [id number] [place] [address] Aug, Dysthymia F34.1 [facility] [id number] [place] [address] Jul, Dysthymia F34.1 [facility] [address] [id number] [place] [address] 22 Jun, 2017 Contact with and (suspected) exposure to potentially hazardous body fluids Z77.21 [facility] [id number] [id number] Apr, Ec[facility]ymosis R58 [facility] [id number] [place] [id number] Apr, Ecchymosis R58 [facility] [address] [place] [address] Jan, Insect bite (nonvenomous) of right ear, initial encounter S00.461A [facility] [address] [place] [address] Dec, Contact with and (suspected) exposure to potentially hazardous body fluids Z77.21 [facility] [address] [place] [id number] [address] 08 Dec, 2016 Mixed obsessional thoughts and acts F42.2 [place] [address] [place] [address] 02 Dec, 2016 Mixed obsessional thoughts and acts F42.2 and Needlestick injury accident, initial encounter W27.3XXA [place] [address] [address] [address] [place] [address] Nov, Dental examination Z01.20 [place] [address] [address] [address] [place] [address] Sep, Acute left-sided low back pain with left-sided sciatica M54.42 [facility] [address] [place] [address] 08 Jun, 2016 Needle stick injury, initial encounter W27.3XXA IMMUNIZATIONS No Known Immunizations SOCIAL HISTORY Never Assessed REASON FOR VISIT PLAN OF CARE VITAL SIGNS MEDICATIONS Medication Instructions Dosage Frequency Start Date End Date Duration Status Amoxicillin-Pot Clavulanate 875-125 MG Orally every 12 hrs 1 tablet 12h May, May, 07 days Active RESULTS No Results PROCEDURES No Known procedures INSTRUCTIONS MEDICATIONS ADMINISTERED No Known Medications MEDICAL (GENERAL) HISTORY Type Description Date Surgical History Tonsilectomy 2014
--- OUTSIDE RECORDS SUMMARY | 2019-04-21 07:34 | XMS REPORT ---
Author Author NAVIN CRONIN Organization [facility] Address [address] [place] [address] Care Team Providers Care Jewelry Bearing Maker Name Role Phone NAVIN CRONIN Unavailable PROBLEMS Type Condition ICD9-CM Code THF33-GH Code Onset Dates Condition Status SNOMED Code Problem YASHIRA (generalized anxiety disorder) F41.1 Active 11605612 Problem Mild episode of recurrent major depressive disorder F33.0 Active 847499849 Problem Contact with and (suspected) exposure to potentially hazardous body fluids Z77.21 Active 948784728 Problem Obsessive-compulsive disorder with good or fair insight F42.9 Active 280754241 Problem Primary dysmenorrhea N94.4 Active 541566452 ALLERGIES No Known Allergies ENCOUNTERS Encounter Location Date Diagnosis [place] [id number] [place] [address] Jul, [facility] [id number] [place] [id number] Jul, [place] [address] [place] [address] May, [place] [address] [place] [id number] [place] [address] Apr, Cervicalgia M54.2 [place] [address] [place] [address] [id number] [place] [address] Apr, Obsessive-compulsive disorder with good or fair insight F42.9 ; YASHIRA (generalized anxiety disorder) F41.1 and Mild episode of recurrent major depressive disorder F33.0 [place] [address] [id number] [place] [address] Mar, Obsessive-compulsive disorder with good or fair insight F42.9 ; YASHIRA (generalized anxiety disorder) F41.1 and Mild episode of recurrent major depressive disorder F33.0 [facility] [address] [place] [address] Mar, Obsessive-compulsive disorder with good or fair insight F42.9 [facility] [id number] [place] [address] Jan, Primary dysmenorrhea N94.4 [place] [address] [address] Aug, Encounter for immunization Z23 [place] [address] [id number] [place] [address] 02 Aug, 2017 Dysthymia F34.1 [place] [address] [place] [address] [id number] [place] [address] 05 Jul, 2017 Dysthymia F34.1 [place] [address] [id number] [place] [address] Jun, Contact with and (suspected) exposure to potentially hazardous body fluids Z77.21 [facility] [id number] [place] [phone] Apr, Ecchymosis R58 [facility] [address] [phone] Apr, Ecchymosis R58 [facility] [id number] [place] [address] Jan, Insect bite (nonvenomous) of right ear, initial encounter S00.461A [facility] [id number] [place] [address] Dec, Contact with and (suspected) exposure to potentially hazardous body fluids Z77.21 [facility] [id number] [place] [address] 08 Dec, 2016 Mixed obsessional thoughts and acts F42.2 [place] [address] [id number] [place] [address] Dec, Mixed obsessional thoughts and acts F42.2 and Needlestick injury accident, initial encounter W27.3XXA [facility] [address] [facility] [id number] [address] Nov, Dental examination Z01.20 [facility] [address] [id number] [address] Sep, Acute left-sided low back pain with left-sided sciatica M54.42 [facility] [address] [id number] [address] Jun, Needle stick injury, initial encounter W27.3XXA IMMUNIZATIONS No Known Immunizations SOCIAL HISTORY Never Assessed REASON FOR VISIT intake PLAN OF CARE Activity Details Follow Up 2 Weeks Reason: VITAL SIGNS MEDICATIONS Medication Instructions Dosage Frequency Start Date End Date Duration Status Trintellix 10 MG Orally Once a day 1 tablet 24h Active tylenol Active ibuprofen Active Naprosyn 500 mg Orally every 12 hrs 1 tablet with food or milk starting 1 day before menstrual cycle and continue for 3-4 days 12h 27 Jan, 2018 Active RESULTS No Results PROCEDURES Procedure Date Ordered Result Body Site Psych diagnostic evaluation, new patient April 05, 2018 INSTRUCTIONS MEDICATIONS ADMINISTERED No Known Medications MEDICAL (GENERAL) HISTORY Type Description Date Surgical History Tonsilectomy 2014
--- OUTSIDE RECORDS SUMMARY | 2019-04-21 07:34 | XMS REPORT ---
Author Author CAROLINKATELYNNA Organization [facility] Address [address] [place] [address] Care Team Providers Care Soap Maker Name Role Phone AKOSUALUIS ALBERTO VACA Unavailable PROBLEMS Type Condition ICD9-CM Code FTW13-UT Code Onset Dates Condition Status SNOMED Code Problem YASHIRA (generalized anxiety disorder) F41.1 Active 65538744 Problem Mild episode of recurrent major depressive disorder F33.0 Active 043901488 Problem Contact with and (suspected) exposure to potentially hazardous body fluids Z77.21 Active 236369096 Problem Obsessive-compulsive disorder with good or fair insight F42.9 Active 450195529 Problem Primary dysmenorrhea N94.4 Active 931805512 ALLERGIES No Information ENCOUNTERS Encounter Location Date Diagnosis [facility] [address] [place] [address] Jul, [facility] [id number] [place] [address] Jul, [facility] [id number] [place] [address] May, Obsessive-compulsive disorder with good or fair insight F42.9 ; YASHIRA (generalized anxiety disorder) F41.1 and Mild episode of recurrent major depressive disorder F33.0 [facility] [address] [place] [address] May, [facility] [id number] [place] [address] Apr, Cervicalgia M54.2 [facility] [address] [place] [address] Apr, Obsessive-compulsive disorder with good or fair insight F42.9 ; YASHIRA (generalized anxiety disorder) F41.1 and Mild episode of recurrent major depressive disorder F33.0 [facility] [address] [place] [address] 13 Mar, 2018 Obsessive-compulsive disorder with good or fair insight F42.9 ; YASHIRA (generalized anxiety disorder) F41.1 and Mild episode of recurrent major depressive disorder F33.0 [facility] [id number] [place] [address] 11 Mar, 2018 Obsessive-compulsive disorder with good or fair insight F42.9 [facility] [id number] [place] [address] Jan, Primary dysmenorrhea N94.4 [place] [id number] [place] [address] 28 Aug, 2017 Encounter for immunization Z23 [facility] [id number] [place] [address] Aug, Dysthymia F34.1 [facility] [id number] [place] [address] Jul, Dysthymia F34.1 [facility] [id number] [place] [address] 22 Jun, 2017 Contact with and (suspected) exposure to potentially hazardous body fluids Z77.21 [facility] [id number] [id number] Apr, Ecchymosis R[address] [facility] [id number] [place] [phone] Apr, Ecchymosis R[address] [facility] [address] [place] [address] Jan, Insect bite (nonvenomous) of right ear, initial encounter S00.461A [facility] [address] [place] [address] Dec, Contact with and (suspected) exposure to potentially hazardous body fluids Z77.21 [facility] [address] [id number] [address] 08 Dec, 2016 Mixed obsessional thoughts and acts F42.2 [facility] [address] [place] [address] 02 Dec, 2016 Mixed obsessional thoughts and acts F42.2 and Needlestick injury accident, initial encounter W27.3XXA [place] [id number] [place] [address] 23 Nov, 2016 Dental examination Z01.20 [place] [id number] [place] [address] Sep, Acute left-sided low back pain with left-sided sciatica M54.42 [facility] [address] [address] 08 Jun, 2016 Needle stick injury, initial encounter W27.3XXA IMMUNIZATIONS No Known Immunizations SOCIAL HISTORY Never Assessed REASON FOR VISIT Psychiatric f/u- Quit taking trintelex 3 days ago d/t nausea- Silvestre Bhatti RN PLAN OF CARE Activity Details Follow Up 4 Weeks Reason: VITAL SIGNS Height 65 in 2018-06-21 Weight 169 lbs 2018-06-21 Heart Rate 88 bpm 2018-06-21 BMI 28.12 kg/m2 2018-06-21 Blood pressure systolic 110 mmHg 2018-06-21 Blood pressure diastolic 72 mmHg 2018-06-21 MEDICATIONS Medication Instructions Dosage Frequency Start Date End Date Duration Status Sertraline HCl 25 MG Orally nightly 0.5 tablet every day for one week then take full tablet nightly May, 30 day(s) Active Naprosyn 500 mg Orally every 12 hrs 1 tablet with food or milk starting 1 day before menstrual cycle and continue for 3-4 days 12h Jan, Active RESULTS No Results PROCEDURES No Known procedures INSTRUCTIONS MEDICATIONS ADMINISTERED No Known Medications MEDICAL (GENERAL) HISTORY Type Description Date Surgical History Tonsilectomy 2014
--- OUTSIDE RECORDS SUMMARY | 2019-04-21 07:34 | XMS REPORT ---
Author Author CAROLIN LUIS ALBERTO Organization [facility] Address [address] [place] [address] Care Team Providers Care Waiter/Waitress Third Class Name Role Phone AKOSUALIO LUIS ALBERTO Unavailable PROBLEMS Type Condition ICD9-CM Code WUT62-DS Code Onset Dates Condition Status SNOMED Code Problem Major depressive disorder, single episode, unspecified F32.9 Active 26966872 Problem YASHIRA (generalized anxiety disorder) F41.1 Active 36499204 Problem Primary dysmenorrhea N94.4 Active 159027722 Problem Contact with and (suspected) exposure to potentially hazardous body fluids Z77.21 Active 064813117 Problem Mild episode of recurrent major depressive disorder F33.0 Active 750127209 Problem Obsessive-compulsive disorder with good or fair insight F42.9 Active 328505716 ALLERGIES No Information ENCOUNTERS Encounter Location Date Diagnosis [facility] [id number] [place] [phone] Jul, [facility] [id number] [place] [address] Jul, [facility] [id number] [place] [phone] Jul, Encounter for immunization Z23 [facility] [id number] [place] [address] Jul, Other fatigue R53.83 and Major depressive disorder, single episode, unspecified F32.9 [facility] [address] [address] Jun, Obsessive-compulsive disorder with good or fair insight F42.9 [facility] [id number] [place] [address] May, Obsessive-compulsive disorder with good or fair insight F42.9 ; YASHIRA (generalized anxiety disorder) F41.1 and Mild episode of recurrent major depressive disorder F33.0 [place] [id number] [place] [address] May, [place] [id number] [place] [address] Apr, Cervicalgia M54.2 [place] [address] [address] Apr, Obsessive-compulsive disorder with good or fair insight F42.9 ; YASHIRA (generalized anxiety disorder) F41.1 and Mild episode of recurrent major depressive disorder F33.0 [place] [id number] [place] [address] 13 Mar, 2018 Obsessive-compulsive disorder with good or fair insight F42.9 ; YASHIRA (generalized anxiety disorder) F41.1 and Mild episode of recurrent major depressive disorder F33.0 [place] [id number] [place] [address] Mar, Obsessive-compulsive disorder with good or fair insight F42.9 [place] [id number] [place] [address] Jan, Primary dysmenorrhea N94.4 [place] [id number] [place] [address] Aug, Encounter for immunization Z23 [place] [id number] [place] [address] Aug, Dysthymia F34.1 [place] [id number] [place] [address] 05 Jul, 2017 Dysthymia F34.1 [place] [id number] [place] [address] 22 Jun, 2017 Contact with and (suspected) exposure to potentially hazardous body fluids Z77.21 [facility] [id number] [place] [id number] Apr, Ecchymosis R58 [facility] [address] [facility] [id number] [phone] Apr, Ecchymosis R58 [facility] [address] [place] [address] Jan, Insect bite (nonvenomous) of right ear, initial encounter S00.461A [place] [id number] [place] [address] Dec, Contact with and (suspected) exposure to potentially hazardous body fluids Z77.21 [place] [id number] [place] [address] Dec, Mixed obsessional thoughts and acts F42.2 [place] [id number] [place] [address] Dec, Mixed obsessional thoughts and acts F42.2 and Needlestick injury accident, initial encounter W27.3XXA [place] [address] [place] [address] Nov, Dental examination Z01.20 [place] [id number] [place] [address] Sep, Acute left-sided low back pain with left-sided sciatica M54.42 [facility] [place] [address] [place] [address] Jun, Needle stick injury, initial encounter W27.3XXA IMMUNIZATIONS No Known Immunizations SOCIAL HISTORY Never Assessed REASON FOR VISIT Refill request PLAN OF CARE VITAL SIGNS MEDICATIONS Medication Instructions Dosage Frequency Start Date End Date Duration Status Sertraline HCl 50 MG Orally nightly 1 tablet May, 30 day(s) Active RESULTS No Results PROCEDURES No Known procedures INSTRUCTIONS MEDICATIONS ADMINISTERED No Known Medications MEDICAL (GENERAL) HISTORY Type Description Date Surgical History Tonsilectomy 2014
--- OUTSIDE RECORDS SUMMARY | 2019-04-21 07:34 | XMS REPORT ---
Author Author AGUILA DOMITILA [facility] Address [address] [place] [address] Care Team Providers Care Senior Media Buyer Name Role Phone DOMITILA SHEEHAN Unavailable PROBLEMS Type Condition ICD9-CM Code HKI30-YF Code Onset Dates Condition Status SNOMED Code Problem YASHIRA (generalized anxiety disorder) F41.1 Active 21705986 Problem Mild episode of recurrent major depressive disorder F33.0 Active 054394435 Problem Contact with and (suspected) exposure to potentially hazardous body fluids Z77.21 Active 017432870 Problem Obsessive-compulsive disorder with good or fair insight F42.9 Active 270207741 Problem Primary dysmenorrhea N94.4 Active 865650165 ALLERGIES No Known Allergies ENCOUNTERS Encounter Location Date Diagnosis [facility] [place] [address] [place] [phone] Jul, [facility] [id number] [place] [phone] Jul, [facility] [place] [address] [place] [address] Apr, Cervicalgia M54.2 [facility] [place] [id number] [place] [address] Apr, Obsessive-compulsive disorder with good or fair insight F42.9 ; YASHIRA (generalized anxiety disorder) F41.1 and Mild episode of recurrent major depressive disorder F33.0 [facility] [place] [id number] [place] [address] 13 Mar, 2018 Obsessive-compulsive disorder with good or fair insight F42.9 ; YASHIRA (generalized anxiety disorder) F41.1 and Mild episode of recurrent major depressive disorder F33.0 [facility] [place] [id number] [place] [address] Mar, Obsessive-compulsive disorder with good or fair insight F42.9 [facility] [place] [id number] [place] [address] Jan, Primary dysmenorrhea N94.4 [facility] [place] [id number] [place] [phone] 28 Aug, 2017 Encounter for immunization Z23 [facility] [place] [address] [address] 02 Aug, 2017 Dysthymia F34.1 [facility] [place] [address] [address] 05 Jul, 2017 Dysthymia F34.1 [place] [address] [address] 22 Jun, 2017 Contact with and (suspected) exposure to potentially hazardous body fluids Z77.21 [facility] [address] [phone] Apr, Ecchymosis R58 [facility] [address] [id number] Apr, Ecchymosis R58 [facility] [address] [address] Jan, Insect bite (nonvenomous) of right ear, initial encounter S00.461A [facility] [place] [address] [address] Dec, Contact with and (suspected) exposure to potentially hazardous body fluids Z77.21 [facility] [place] [id number] [place] [address] 08 Dec, 2016 Mixed obsessional thoughts and acts F42.2 [place] [address] [address] Dec, Mixed obsessional thoughts and acts F42.2 and Needlestick injury accident, initial encounter W27.3XXA [facility] [place] [address] [place] [address] 23 Nov, 2016 Dental examination Z01.20 [facility] [place] [address] [facility] [id number] [address] Sep, Acute left-sided low back pain with left-sided sciatica M54.42 [facility] [address] [facility] [id number] [address] 08 Jun, 2016 Needle stick injury, initial encounter W27.3XXA IMMUNIZATIONS No Known Immunizations SOCIAL HISTORY Never Assessed REASON FOR VISIT Irregular Periods--tcuppettRN, -Having a period every month, but at different ti mes. Over past year has had an increase in pain and bleeding with menstrual cycl e. PLAN OF CARE Activity Details Follow Up 2 Months Reason:Dysmenorrhea VITAL SIGNS Height 65 in 2018-02-19 Weight 168 lbs 2018-02-19 Temperature 98.1 degrees Fahrenheit 2018-02-19 Heart Rate 72 bpm 2018-02-19 Respiratory Rate 20 2018-02-19 BMI 27.95 kg/m2 2018-02-19 Blood pressure systolic 110 mmHg 2018-02-19 Blood pressure diastolic 68 mmHg 2018-02-19 MEDICATIONS Medication Instructions Dosage Frequency Start Date End Date Duration Status ibuprofen Active tylenol Active Trintellix 10 mg orally once a day 1 tablet 24h Aug, February, 30 days Active Naprosyn 500 mg Orally every 12 hrs 1 tablet with food or milk starting 1 day before menstrual cycle and continue for 3-4 days 12h Jan, Active Trintellix 10 MG Orally Once a day 1 tablet 24h Not-Taking RESULTS No Results PROCEDURES No Known procedures INSTRUCTIONS MEDICATIONS ADMINISTERED No Known Medications MEDICAL (GENERAL) HISTORY Type Description Date Surgical History Tonsilectomy 2014
--- OUTSIDE RECORDS SUMMARY | 2019-04-21 07:34 | XMS REPORT ---
Author Author CAROLINKATELYNNA Organization [facility] Address [address] [place] [address] Care Team Providers Care Supervisor Vacuum Metalizing Name Role Phone AKOSUALUIS ALBERTO VACA Unavailable PROBLEMS Type Condition ICD9-CM Code [id number] Code Onset Dates Condition Status SNOMED Code Problem YASHIRA (generalized anxiety disorder) F41.1 Active 09449883 Problem Mild episode of recurrent major depressive disorder F33.0 Active 416847708 Problem Contact with and (suspected) exposure to potentially hazardous body fluids Z77.21 Active 677430149 Problem Obsessive-compulsive disorder with good or fair insight F42.9 Active 395037511 Problem Primary dysmenorrhea N94.4 Active 820761096 ALLERGIES No Information ENCOUNTERS Encounter Location Date Diagnosis [facility] [id number] [place] [phone] Jul, [facility] [id number] [place] [phone] Jul, [facility] [address] [place] [phone] May, Obsessive-compulsive disorder with good or fair insight F42.9 ; YASHIRA (generalized anxiety disorder) F41.1 and Mild episode of recurrent major depressive disorder F33.0 [facility] [address] [address] May, [facility] [id number] [place] [phone] Apr, Cervicalgia M54.2 [facility] [address] [place] [address] Apr, Obsessive-compulsive disorder with good or fair insight F42.9 ; YASHIRA (generalized anxiety disorder) F41.1 and Mild episode of recurrent major depressive disorder F33.0 [facility] [address] [place] [address] 13 Mar, 2018 Obsessive-compulsive disorder with good or fair insight F42.9 ; YASHIRA (generalized anxiety disorder) F41.1 and Mild episode of recurrent major depressive disorder F33.0 [facility] [id number] [place] [phone] 11 Mar, 2018 Obsessive-compulsive disorder with good or fair insight F42.9 [facility] [id number] [place] [phone] 27 Jan, 2018 Primary dysmenorrhea N94.4 [place] [address] [address] Aug, Encounter for immunization Z23 [facility] [address] [address] 02 Aug, 2017 Dysthymia F34.1 [facility] [id number] [place] [address] 05 Jul, 2017 Dysthymia F34.1 [place] [id number] [place] [address] 22 Jun, 2017 Contact with and (suspected) exposure to potentially hazardous body fluids Z77.21 [facility] [id number] [phone] Apr, Ecchymosis R58 [facility] [id number] [place] [phone] Apr, Ecchymosis R58 [facility] [id number] [place] [phone] Jan, Insect bite (nonvenomous) of right ear, initial encounter S00.461A [facility] [id number] [place] [phone] Dec, Contact with and (suspected) exposure to potentially hazardous body fluids Z77.21 [facility] [address] [place] [address] 08 Dec, 2016 Mixed obsessional thoughts and acts F42.2 [facility] [id number] [place] [address] 02 Dec, 2016 Mixed obsessional thoughts and acts F42.2 and Needlestick injury accident, initial encounter W27.3XXA [place] [id number] [place] [phone] 23 Nov, 2016 Dental examination Z01.20 [place] [id number] [place] [address] 20 Sep, 2016 Acute left-sided low back pain with left-sided sciatica M54.42 [facility] [address] [place] [address] 08 Jun, 2016 Needle stick injury, initial encounter W27.3XXA IMMUNIZATIONS No Known Immunizations SOCIAL HISTORY Never Assessed REASON FOR VISIT [facility] PLAN OF CARE Activity Details Follow Up 3 Months, prn Reason: VITAL SIGNS Height 65 in 2018-05-04 Weight 174 lbs 2018-05-04 BMI 28.95 kg/m2 2018-05-04 Blood pressure systolic 122 mmHg 2018-05-04 Blood pressure diastolic 74 mmHg 2018-05-04 MEDICATIONS Medication Instructions Dosage Frequency Start Date [...]
--- OUTSIDE RECORDS SUMMARY | 2019-04-21 07:34 | XMS REPORT ---
Author Author EVANGELINA NIXON [facility] Address [address] [place] [address] Care Team Providers Care Emblem Maker Name Role Phone EVANGELINA NIXON Unavailable PROBLEMS Type Condition ICD9-CM Code MPE16-OT Code Onset Dates Condition Status SNOMED Code Problem Primary dysmenorrhea N94.4 Active 541066481 Problem Dysthymia F34.1 Active 13900741 Problem Contact with and (suspected) exposure to potentially hazardous body fluids Z77.21 Active 549464921 Problem Mixed obsessional thoughts and acts F42.2 Active 76041485 ALLERGIES No Known Allergies ENCOUNTERS Encounter Location Date Diagnosis [facility] [address] [address] Jan, Primary dysmenorrhea N94.4 [facility] [address] [address] Aug, Encounter for immunization Z23 [facility] [address] [address] Aug, Dysthymia F34.1 [facility] [address] [address] Jul, Dysthymia F34.1 [facility] [address] [address] Jun, Contact with and (suspected) exposure to potentially hazardous body fluids Z77.21 [facility] [id number] [place] [phone] Apr, Ec[facility]ymosis R58 [facility] [id number] [place] [phone] Apr, Ecchymosis R58 [facility] [address] [place] [address] Jan, Insect bite (nonvenomous) of right ear, initial encounter S00.461A [place] [address] 13 Dec, 2016 Contact with and (suspected) exposure to potentially hazardous body fluids Z77.21 [place] [address] 08 Dec, 2016 Mixed obsessional thoughts and acts F42.2 [place] [address] 02 Dec, 2016 Mixed obsessional thoughts and acts F42.2 and Needlestick injury accident, initial encounter W27.3XXA [place] [address] [id number] 23 Nov, 2016 Dental examination Z01.20 [place] [address] [place] [address] [address] Sep, Acute left-sided low back pain with left-sided sciatica M54.42 [facility] [address] 08 Jun, 2016 Needle stick injury, initial encounter W27.3XXA IMMUNIZATIONS No Known Immunizations SOCIAL HISTORY Never Assessed REASON FOR VISIT Possible Medication side effect from the fluoxitine, nausea and dizzy- [place] [facility] PLAN OF CARE Activity Details Follow Up 4 Weeks Reason: VITAL SIGNS Height 65 in 2017-07-30 Weight 146.8 lbs 2017-07-30 Temperature 98.2 degrees Fahrenheit 2017-07-30 Heart Rate 82 bpm 2017-07-30 Respiratory Rate 20 2017-07-30 BMI 24.43 kg/m2 2017-07-30 Blood pressure systolic 114 mmHg 2017-07-30 Blood pressure diastolic 76 mmHg 2017-07-30 MEDICATIONS Medication Instructions Dosage Frequency Start Date End Date Duration Status Prozac 40 MG Orally Once a day 1 capsule in the morning 24h 90 days Active RESULTS No Results PROCEDURES No Known procedures INSTRUCTIONS MEDICATIONS ADMINISTERED No Known Medications MEDICAL (GENERAL) HISTORY Type Description Date Surgical History Tonsilectomy 2014
--- OUTSIDE RECORDS SUMMARY | 2019-04-21 07:34 | XMS REPORT ---
Author Author EUSEBIO PAK Organization [facility] Address [address] [place] [address] Care Team Providers Care Railroad Engineer Name Role Phone EUSEBIO PAK Unavailable PROBLEMS Type Condition ICD9-CM Code RMQ59-WJ Code Onset Dates Condition Status SNOMED Code Problem YASHIRA (generalized anxiety disorder) F41.1 Active 12783440 Problem Mild episode of recurrent major depressive disorder F33.0 Active 932897337 Problem Contact with and (suspected) exposure to potentially hazardous body fluids Z77.21 Active 839154221 Problem Obsessive-compulsive disorder with good or fair insight F42.9 Active 161313118 Problem Primary dysmenorrhea N94.4 Active 101409303 ALLERGIES No Known Allergies ENCOUNTERS Encounter Location Date Diagnosis [place] [address] [place] [address] Jul, [facility] [id number] [place] [phone] Jul, [place] [address] [id number] [place] [address] May, Obsessive-compulsive disorder with good or fair insight F42.9 ; YASHIRA (generalized anxiety disorder) F41.1 and Mild episode of recurrent major depressive disorder F33.0 [facility] [address] [place] [address] May, [place] [id number] [place] [address] Apr, Cervicalgia M54.2 [place] [id number] [place] [address] Apr, Obsessive-compulsive disorder with good or fair insight F42.9 ; YASHIRA (generalized anxiety disorder) F41.1 and Mild episode of recurrent major depressive disorder F33.0 [facility] [address] [place] [address] 13 Mar, 2018 Obsessive-compulsive disorder with good or fair insight F42.9 ; YASHIRA (generalized anxiety disorder) F41.1 and Mild episode of recurrent major depressive disorder F33.0 [facility] [id number] [place] [address] 11 Mar, 2018 Obsessive-compulsive disorder with good or fair insight F42.9 [facility] [id number] [place] [address] Jan, Primary dysmenorrhea N94.4 [place] [id number] [place] [address] 28 Aug, 2017 Encounter for immunization Z23 [facility] [id number] [place] [address] 02 Aug, 2017 Dysthymia F34.1 [facility] [id number] [place] [address] Jul, Dysthymia F34.1 [facility] [id number] [place] [address] 22 Jun, 2017 Contact with and (suspected) exposure to potentially hazardous body fluids Z77.21 [facility] [id number] [phone] Apr, Ecchymosis R58 [facility] [id number] [place] [phone] Apr, Ecchymosis R58 [facility] [id number] [place] [address] Jan, Insect bite (nonvenomous) of right ear, initial encounter S00.461A [facility] [address] [address] Dec, Contact with and (suspected) exposure to potentially hazardous body fluids Z77.21 [facility] [address] [address] [address] 08 Dec, 2016 Mixed obsessional thoughts and acts F42.2 [facility] [id number] [place] [address] 02 Dec, 2016 Mixed obsessional thoughts and acts F42.2 and Needlestick injury accident, initial encounter W27.3XXA [facility] [id number] [place] [address] 23 Nov, 2016 Dental examination Z01.20 [facility] [address] [place] [address] 20 Sep, 2016 Acute left-sided low back pain with left-sided sciatica M54.42 [facility] [address], [place] [address] 08 Jun, 2016 Needle stick injury, initial encounter W27.3XXA IMMUNIZATIONS No Known Immunizations SOCIAL HISTORY Never Assessed REASON FOR VISIT Neck Pain and stiffness x1 day-----DBennettRN PLAN OF CARE Activity Details Follow Up prn Reason: VITAL SIGNS Height 65 in 2018-05-05 Weight 172.3 lbs 2018-05-05 Temperature 98.0 degrees Fahrenheit 2018-05-05 Heart Rate 96 bpm 2018-05-05 Respiratory Rate 20 2018-05-05 BMI 28.67 kg/m2 2018-05-05 Blood pressure systolic 112 mmHg 2018-05-05 Blood pressure diastolic 72 mmHg 2018-05-05 MEDICATIONS Medication Instructions Dosage Frequency Start Date End Date Duration Status Orphenadrine Citrate ER 100 mg Orally Once a day 1 tablet at bedtime 24h Apr, Apr, 05 days Active Trintellix 20 MG Orally Once a day 1 tablet 24h 30 days Active Naprosyn 500 mg Orally every 12 hrs 1 tablet with food or milk starting 1 day before menstrual cycle and continue for 3-4 days 12h Jan, Active RESULTS No Results PROCEDURES No Known procedures INSTRUCTIONS MEDICATIONS ADMINISTERED No Known Medications MEDICAL (GENERAL) HISTORY Type Description Date Surgical History Tonsilectomy 2014
--- OUTSIDE RECORDS SUMMARY | 2019-04-21 07:35 | XMS REPORT | Continuity of Care Document ---
Author Organization Unknown Address Unknown Allergies Active Description Code Type Severity Reaction Onset Reported/Identified Relationship to Patient Clinical Status Yes No Known Drug Allergies [id number] Drug Allergy Unknown N/A 04/19/2019 Medications There is no data. Problems Date Dx Coded Attending Type Code Diagnosis Diagnosed By 01/18/2019 NADEEM TURPIN MD Ot J32.9 CHRONIC SINUSITIS, UNSPECIFIED 01/18/2019 NADEEM TURPIN MD Ot J34.2 DEVIATED NASAL SEPTUM 01/31/2019 NADEEM TURPIN MD Ot J32.9 CHRONIC SINUSITIS, UNSPECIFIED 01/31/2019 NADEEM TURPIN MD Ot J34.2 DEVIATED NASAL SEPTUM 03/11/2019 NADEEM TURPIN MD Ot J32.9 CHRONIC SINUSITIS, UNSPECIFIED 03/11/2019 NADEEM TURPIN MD Ot J34.2 DEVIATED NASAL SEPTUM 04/19/2019 NADEEM TURPIN MD Ot Z01.818 ENCOUNTER FOR OTHER PREPROCEDURAL EXAMIN Procedures There is no data. Results Test Result Range HEP B SURFACE ANTIGEN - 07/17/17 15:25 HBsAg Screen Negative Negative Encounters ACCT No. Visit Date/Time Discharge Status Pt. Type Provider Facility Loc./Unit Complaint [id number] 04/15/2019 14:00:00 04/15/2019 23:59:59 CLS Outpatient [facility] [id number] 07/17/2017 15:20:00 Document Registration [id number] 04/19/2019 05:38:00 04/19/2019 12:00:00 DIS Outpatient NADEEM TURPIN MD [facility] PREOP HYPERTROPHY TURBINATES/DEVIATED SEPTUM [id number] 01/17/2019 16:38:00 01/17/2019 23:59:59 CLS Outpatient NADEEM TURPIN MD [facility] RAD CHRONIC SINUSITIS [id number] 04/21/2019 11:00:00 PEN Preadmit NADEEM TURPIN MD Via [facility] HPERTROPHY OF TURBINATES/DEVIATED SEPTUM
--- OUTSIDE RECORDS SUMMARY | 2019-04-21 07:35 | XMS REPORT ---
Author Author ELINOR PAK Organization [facility] Address [address] [place] [address] Care Team Providers Care Candy Spreader Helper Name Role Phone ELINOR PAK Unavailable PROBLEMS Type Condition ICD9-CM Code BNS42-HM Code Onset Dates Condition Status SNOMED Code Assessment Needle stick injury, initial encounter W27.3XXA Jun, Active 454883335 ALLERGIES Substance Reaction Event Type Date Status N.K.D.A. Unknown Non Drug Allergy Jun, Unknown SOCIAL HISTORY No smoking Hx information available PLAN OF CARE VITAL SIGNS Weight 146.6 lbs 2016-07-03 Heart Rate 102 bpm 2016-07-03 Respiratory Rate 20 2016-07-03 Blood pressure systolic 122 mmHg 2016-07-03 Blood pressure diastolic 68 mmHg 2016-07-03 MEDICATIONS Medication Instructions Dosage Frequency Start Date End Date Duration Status Prozac 20 MG Orally Once a day 1 capsule in the morning 24h Active RESULTS Name Result Date Reference Range HEP B SURFACE ANTIBODY 2016-07-03 Hep B Surface Ab, Qual Reactive HEP B SURFACE ANTIGEN 2016-07-03 HBsAg Screen Negative Negative HIV ANTIGEN/ANTIBODY 2016-07-03 HIV Screen 4th Generation wRfx Non Reactive Non Reactive HEP C ANTIBODY 2016-07-03 Hep C Virus Ab <0.1 0.0-0.9 Written Authorization 2016-07-03 Written Authorization PROCEDURES Procedure Date Ordered Related Diagnosis Body Site HIV-1 AG W/HIV-1 & HIV-2 AB Jul 03, 2016 HEPATITIS C AB TEST Jul 03, 2016 Office Visit, New Pt., Level 3 Jul 03, 2016 HEPATITIS B SURFACE AG, EIA Jul 03, 2016 HEP B SURFACE ANTIBODY Jul 03, 2016 VENIPUNCT, ROUTINE* Jul 03, 2016 IMMUNIZATIONS No Known Immunizations
--- OUTSIDE RECORDS SUMMARY | 2019-04-21 07:35 | XMS REPORT ---
Author Author EVANGELINA NIXON [facility] Address [address] [place] [address] Care Team Providers Care Heart Coordinator Name Role Phone EVANGELINA NIXON Unavailable PROBLEMS Type Condition ICD9-CM Code NXG21-PM Code Onset Dates Condition Status SNOMED Code Problem Contact with and (suspected) exposure to potentially hazardous body fluids Z77.21 Active 744871973 Problem Mixed obsessional thoughts and acts F42.2 Active 62137225 ALLERGIES No Known Allergies SOCIAL HISTORY Never Assessed PLAN OF CARE Activity Details Follow Up 1 Year Reason: VITAL SIGNS Weight 149 lbs 2016-12-25 Temperature 98.1 degrees Fahrenheit 2016-12-25 Heart Rate 76 bpm 2016-12-25 Respiratory Rate 16 2016-12-25 Blood pressure systolic 112 mmHg 2016-12-25 Blood pressure diastolic 70 mmHg 2016-12-25 MEDICATIONS Medication Instructions Dosage Frequency Start Date End Date Duration Status Prozac 40 MG Orally Once a day 1 capsule in the morning 24h 90 days Active RESULTS No Results PROCEDURES No Known procedures IMMUNIZATIONS No Known Immunizations MEDICAL (GENERAL) HISTORY Type Description Date Surgical History Tonsilectomy 2014
--- OUTSIDE RECORDS SUMMARY | 2019-04-21 07:35 | XMS REPORT ---
Author Author EVANGELINA NIXON [facility] Address [address] [place] [address] Care Team Providers Care Professor Of Legal Studies Name Role Phone EVANGELINA NIXON Unavailable PROBLEMS Type Condition ICD9-CM Code DQL49-DU Code Onset Dates Condition Status SNOMED Code Problem Contact with and (suspected) exposure to potentially hazardous body fluids Z77.21 Active 864260151 Problem Mixed obsessional thoughts and acts F42.2 Active 07227349 ALLERGIES Substance Reaction Event Type Date Status N.K.D.A. Unknown Non Drug Allergy Sep, Unknown SOCIAL HISTORY No smoking Hx information available PLAN OF CARE Activity Details Follow Up prn Reason: VITAL SIGNS Weight 146 lbs 2016-10-14 Temperature 98.1 degrees Fahrenheit 2016-10-14 Heart Rate 80 bpm 2016-10-14 Respiratory Rate 18 2016-10-14 Blood pressure systolic 90 mmHg 2016-10-14 Blood pressure diastolic 60 mmHg 2016-10-14 MEDICATIONS Medication Instructions Dosage Frequency Start Date End Date Duration Status Prozac 20 MG Orally Once a day 1 capsule in the morning 24h Active Cyclobenzaprine HCl 10 mg Orally hs 1 tablet Sep, Oct, 14 days Active RESULTS No Results PROCEDURES Procedure Date Ordered Related Diagnosis Body Site Office Visit, Est Pt., Level 2 Oct 14, 2016 IMMUNIZATIONS No Known Immunizations
--- OUTSIDE RECORDS SUMMARY | 2019-04-21 07:35 | XMS REPORT ---
Author Author EVANGELINA NIXON [facility] Address [address] [place] [address] Care Team Providers Care Bpm Developer Name Role Phone EVANGELINA NIXON Unavailable PROBLEMS Type Condition ICD9-CM Code MPE16-AN Code Onset Dates Condition Status SNOMED Code Problem Primary dysmenorrhea N94.4 Active 340117019 Problem Dysthymia F34.1 Active 55343075 Problem Contact with and (suspected) exposure to potentially hazardous body fluids Z77.21 Active 627599220 Problem Mixed obsessional thoughts and acts F42.2 Active 28165574 ALLERGIES No Information ENCOUNTERS Encounter Location Date Diagnosis [facility] [address] [address] Jan, Primary dysmenorrhea N94.4 [facility] [address] [address] Aug, Encounter for immunization Z23 [facility] [address] [address] Aug, Dysthymia F34.1 [facility] [address] [address] Jul, Dysthymia F34.1 [facility] [address] [address] Jun, Contact with and (suspected) exposure to potentially hazardous body fluids Z77.21 [facility] [id number] [place] [phone] Apr, Ecchymosis R58 [facility] [id number] [place] [phone] Apr, Ecchymosis R58 [facility] [address] [address] Jan, Insect bite (nonvenomous) of right ear, initial encounter S00.461A [place] [address] [address] 13 Dec, 2016 Contact with and (suspected) exposure to potentially hazardous body fluids Z77.21 [place] [address] [address] 08 Dec, 2016 Mixed obsessional thoughts and acts F42.2 [place] [address] [address] 02 Dec, 2016 Mixed obsessional thoughts and acts F42.2 and Needlestick injury accident, initial encounter W27.3XXA [place] [address] [address] 23 Nov, 2016 Dental examination Z01.20 [place] [address] [address] Sep, Acute left-sided low back pain with left-sided sciatica M54.42 [facility] [address] [address] 08 Jun, 2016 Needle stick injury, initial encounter W27.3XXA IMMUNIZATIONS Vaccine Route Administration Date Status FLUARIX QUAD (3 AND UP) 2016 IM Intramuscular Sep 22, 2017 Administered SOCIAL HISTORY Never Assessed REASON FOR VISIT Flu shot- Silvestre Bhatti RN PLAN OF CARE VITAL SIGNS MEDICATIONS Unknown Medications RESULTS No Results PROCEDURES Procedure Date Ordered Result Body Site FLUARIX QUAD (3 AND UP) 2017 Sep 22, 2017 SINGLE IMMUNIZATION ADMIN Sep 22, 2017 INSTRUCTIONS MEDICATIONS ADMINISTERED No Known Medications MEDICAL (GENERAL) HISTORY Type Description Date Surgical History Tonsilectomy 2014
--- OUTSIDE RECORDS SUMMARY | 2019-04-21 07:35 | XMS REPORT ---
Author Author EVANGELINA NIXON [facility] Address [address] [place] [address] Care Team Providers Care Finishing Wire Sawyer Name Role Phone EVANGELINA NIXON Unavailable PROBLEMS Type Condition ICD9-CM Code SGN97-UQ Code Onset Dates Condition Status SNOMED Code Problem Contact with and (suspected) exposure to potentially hazardous body fluids Z77.21 Active 685955469 Problem Mixed obsessional thoughts and acts F42.2 Active 02125663 ALLERGIES No Information SOCIAL HISTORY Never Assessed PLAN OF CARE VITAL SIGNS MEDICATIONS Unknown Medications RESULTS Name Result Date Reference Range HEP B SURFACE ANTIGEN 2016-12-31 HBsAg Screen Negative Negative HIV ANTIGEN/ANTIBODY 2016-12-31 HIV Screen 4th Generation wRfx Non Reactive Non Reactive HEP C ANTIBODY 2016-12-31 Hep C Virus Ab <0.1 0.0-0.9 PROCEDURES Procedure Date Ordered Result Body Site HEPATITIS B SURFACE AG, EIA December 31, 2016 HIV-1 AG W/HIV-1 & HIV-2 AB December 31, 2016 VENIPUNCT, ROUTINE* December 31, 2016 HEPATITIS C AB TEST December 31, 2016 IMMUNIZATIONS No Known Immunizations MEDICAL (GENERAL) HISTORY Type Description Date Surgical History Tonsilectomy 2014
--- OUTSIDE RECORDS SUMMARY | 2019-04-21 07:35 | XMS REPORT ---
Author Author EVANGELINA NIXON [facility] Address [address] [place] [address] Care Team Providers Care Systems Designer Name Role Phone EVANGELINA NIXON Unavailable PROBLEMS Type Condition ICD9-CM Code CPV06-IN Code Onset Dates Condition Status SNOMED Code Problem Primary dysmenorrhea N94.4 Active 214003402 Problem Dysthymia F34.1 Active 73632643 Problem Contact with and (suspected) exposure to potentially hazardous body fluids Z77.21 Active 675078992 Problem Mixed obsessional thoughts and acts F42.2 Active 84119600 ALLERGIES No Information ENCOUNTERS Encounter Location Date Diagnosis [facility] [address] [address] Jan, Primary dysmenorrhea N94.4 [facility] [address] [address] Aug, Encounter for immunization Z23 [facility] [address] [address] Aug, Dysthymia F34.1 [facility] [address] [address] Jul, Dysthymia F34.1 [facility] [address] [address] Jun, Contact with and (suspected) exposure to potentially hazardous body fluids Z77.21 [facility] [id number] [place] [phone] Apr, Ecchymosis R58 [facility] [id number] [place] [phone] Apr, Ecchymosis R58 [facility] [address] [address] 29 Jan, 2017 Insect bite (nonvenomous) of right ear, initial encounter S00.461A [place] [address] [place] [id number] 13 Dec, 2016 Contact with and (suspected) exposure to potentially hazardous body fluids Z77.21 [place] [address] [address] 08 Dec, 2016 Mixed obsessional thoughts and acts F42.2 [place] [address] [address] 02 Dec, 2016 Mixed obsessional thoughts and acts F42.2 and Needlestick injury accident, initial encounter W27.3XXA [place] [address] [address] 23 Nov, 2016 Dental examination Z01.20 [place] [address] [address] 20 Sep, 2016 Acute left-sided low back pain with left-sided sciatica M54.42 [facility] [address] [address] 08 Jun, 2016 Needle stick injury, initial encounter W27.3XXA IMMUNIZATIONS No Known Immunizations SOCIAL HISTORY Never Assessed REASON FOR VISIT Lab (walk-in) PLAN OF CARE VITAL SIGNS MEDICATIONS Unknown Medications RESULTS Name Result Date Reference Range HIV ANTIGEN/ANTIBODY 2017-07-17 HIV Screen 4th Generation wRfx Non Reactive Non Reactive HEP C ANTIBODY 2017-07-17 Hep C Virus Ab <0.1 0.0-0.9 HEP B SURFACE ANTIGEN 2017-07-17 HBsAg Screen Negative Negative PROCEDURES Procedure Date Ordered Result Body Site HEPATITIS B SURFACE AG, EIA Jul 17, 2017 HIV-1 AG W/HIV-1 & HIV-2 AB Jul 17, 2017 VENIPUNCT, ROUTINE* Jul 17, 2017 HEPATITIS C AB TEST Jul 17, 2017 INSTRUCTIONS MEDICATIONS ADMINISTERED No Known Medications MEDICAL (GENERAL) HISTORY Type Description Date Surgical History Tonsilectomy 2014
--- OUTSIDE RECORDS SUMMARY | 2019-04-21 07:35 | XMS REPORT ---
Author Author BEN SHEARER Organization [facility] Address [address] [place] [address] Care Team Providers Care Boiler Tender Name Role Phone BEN SHEARER Unavailable PROBLEMS Type Condition ICD9-CM Code KDY43-[id number] Code Onset Dates Condition Status SNOMED Code Problem Dysthymia F34.1 Active 21857762 Problem Contact with and (suspected) exposure to potentially hazardous body fluids Z77.21 Active 393284196 Problem Mixed obsessional thoughts and acts F42.2 Active 37637886 ALLERGIES No Known Allergies ENCOUNTERS Encounter Location Date Diagnosis [place] [address] [address] Aug, Encounter for immunization Z23 [facility] [phone] [place] [phone] Aug, Dysthymia F34.1 [place] [address] [address] Jul, Dysthymia F34.1 [place] [address] [address] [phone] [place] [address] Jun, Contact with and (suspected) exposure to potentially hazardous body fluids Z77.21 [facility] [id number] [phone] Apr, Ecchymosis R58 [facility] [id number] [phone] Apr, Ecchymosis R58 [facility] [id number] [place] [address] Jan, Insect bite (nonvenomous) of right ear, initial encounter S00.461A [facility] [id number] [place] [address] 13 Dec, 2016 Contact with and (suspected) exposure to potentially hazardous body fluids Z77.21 [facility] [id number] [place] [address] 08 Dec, 2016 Mixed obsessional thoughts and acts F42.2 [facility] [id number] [place] [address] 02 Dec, 2016 Mixed obsessional thoughts and acts F42.2 and Needlestick injury accident, initial encounter W27.3XXA [place] [address] [id number] [place] [phone] 23 Nov, 2016 Dental examination Z01.20 [place] [address] [address] 20 Sep, 2016 Acute left-sided low back pain with left-sided sciatica M54.42 [facility] [id number] [place] [phone] 08 Jun, 2016 Needle stick injury, initial encounter W27.3XXA IMMUNIZATIONS No Known Immunizations SOCIAL HISTORY Never Assessed REASON FOR VISIT tick bit on back of right ear 6 days ago. tick was pulled off 4 days ago. pt rep orts entire tick was removed. since then...pt has had some periods of nausea and swollen lymph nodes in neck. [email or web address] PLAN OF CARE VITAL SIGNS Height 65 in 2017-02-21 Weight 148.2 lbs 2017-02-21 Temperature 97.2 degrees Fahrenheit 2017-02-21 Heart Rate 80 bpm 2017-02-21 Respiratory Rate 20 2017-02-21 BMI 24.66 kg/m2 2017-02-21 Blood pressure systolic 118 mmHg 2017-02-21 Blood pressure diastolic 72 mmHg 2017-02-21 MEDICATIONS Medication Instructions Dosage Frequency Start Date End Date Duration Status Doxycycline Hyclate 100 mg Orally every 12 hrs 1 capsule 12h Jan, February, 10 days Active RESULTS No Results PROCEDURES No Known procedures INSTRUCTIONS MEDICATIONS ADMINISTERED No Known Medications MEDICAL (GENERAL) HISTORY Type Description Date Surgical History Tonsilectomy 2014
--- OUTSIDE RECORDS SUMMARY | 2019-04-21 07:35 | XMS REPORT ---
Author Author EVANGELINA NIXON [facility] Address [address] [place] [address] Care Team Providers Care Car Tester Name Role Phone EVANGELINA NIXON Unavailable PROBLEMS Type Condition ICD9-CM Code ZGV13-LD Code Onset Dates Condition Status SNOMED Code Problem Contact with and (suspected) exposure to potentially hazardous body fluids Z77.21 Active 533388621 Problem Mixed obsessional thoughts and acts F42.2 Active 62304693 ALLERGIES No Information SOCIAL HISTORY Never Assessed PLAN OF CARE VITAL SIGNS MEDICATIONS Unknown Medications RESULTS No Results PROCEDURES No Known procedures IMMUNIZATIONS No Known Immunizations MEDICAL (GENERAL) HISTORY Type Description Date Surgical History Tonsilectomy 2014
--- OUTSIDE RECORDS SUMMARY | 2019-04-21 07:35 | XMS REPORT ---
Author Author ADITI BULL Organization [facility] Address [address] [place] [address] Care Team Providers Care Communication Professor Name Role Phone BULLADITI TAMAYO Unavailable PROBLEMS Type Condition ICD9-CM Code MRI28-BO Code Onset Dates Condition Status SNOMED Code Problem Contact with and (suspected) exposure to potentially hazardous body fluids Z77.21 Active 258066619 Problem Mixed obsessional thoughts and acts F42.2 Active 94855140 ALLERGIES No Known Allergies SOCIAL HISTORY Never Assessed PLAN OF CARE Activity Details Follow Up none Reason:tx complete VITAL SIGNS Blood pressure systolic 107 mmHg 2016-12-18 Blood pressure diastolic 74 mmHg 2016-12-18 MEDICATIONS Medication Instructions Dosage Frequency Start Date End Date Duration Status Prozac 20 MG Orally Once a day 1 capsule in the morning 24h Active RESULTS No Results PROCEDURES Procedure Date Ordered Result Body Site INTRAORL-PERIAPICAL 1 FILM 18369 Dec 18, 2016 INTRAORL-PERIAPICAL EA ADD FILM Dec 18, 2016 Billing Notes on claim Dec 18, 2016 TOPICAL FLUORIDE VARNISH Dec 18, 2016 [facility] Employee/Board adjustment Dec 18, 2016 BITEWINGS - FOUR FILMS Dec 18, 2016 INTRAORL-PERIAPICAL EA ADD FILM Dec 18, 2016 PROPHYLAXIS - ADULT Dec 18, 2016 PANORAMIC FILM SEE ALSO CODE [id number] Dec 18, 2016 IMMUNIZATIONS No Known Immunizations MEDICAL (GENERAL) HISTORY Type Description Date Surgical History Tonsilectomy 2015
--- OUTSIDE RECORDS SUMMARY | 2019-04-21 07:35 | XMS REPORT ---
Author Author EVANGELINA NIXON Organization [facility] Address [address] [place] [address] Care Team Providers Care Pulp Screen Operator Name Role Phone EVANGELINA NIXON Unavailable PROBLEMS Type Condition ICD9-CM Code BNV29-NZ Code Onset Dates Condition Status SNOMED Code Problem Primary dysmenorrhea N94.4 Active 378346623 Problem Dysthymia F34.1 Active 18334454 Problem Contact with and (suspected) exposure to potentially hazardous body fluids Z77.21 Active 389797115 Problem Mixed obsessional thoughts and acts F42.2 Active 22115432 ALLERGIES No Known Allergies ENCOUNTERS Encounter Location Date Diagnosis [facility] [address] [address] Jan, Primary dysmenorrhea N94.4 [facility] [address] [address] Aug, Encounter for immunization Z23 [facility] [address] [address] Aug, Dysthymia F34.1 [facility] [address] [address] Jul, Dysthymia F34.1 [facility] [address] [address] Jun, Contact with and (suspected) exposure to potentially hazardous body fluids Z77.21 [facility] [id number] [place] [phone] Apr, [facility] R58 [facility] [id number] [place] [phone] Apr, Ecchymosis R58 [facility] [address] [place] [address] Jan, Insect bite (nonvenomous) of right ear, initial encounter S00.461A [place] [address] [place] [address] [phone] 13 Dec, 2016 Contact with and (suspected) exposure to potentially hazardous body fluids Z77.21 [place] [address] [address] [phone] 08 Dec, 2016 Mixed obsessional thoughts and acts F42.2 [place] [address] [place] [address] [phone] 02 Dec, 2016 Mixed obsessional thoughts and acts F42.2 and Needlestick injury accident, initial encounter W27.3XXA [place] [address] [address] 23 Nov, 2016 Dental examination Z01.20 [place] [address] [address] Sep, Acute left-sided low back pain with left-sided sciatica M54.42 [facility] [address] [place] [phone] 08 Jun, 2016 Needle stick injury, initial encounter W27.3XXA IMMUNIZATIONS No Known Immunizations SOCIAL HISTORY Never Assessed REASON FOR VISIT Trintellix f/u - patient was given samples to try and reports [facility] is [facility] well [facility] Activity Details Follow Up 5 mo Reason: VITAL SIGNS Height 65 in 2017-08-27 Weight 153.5 lbs 2017-08-27 Temperature 98.2 degrees Fahrenheit 2017-08-27 Heart Rate 84 bpm 2017-08-27 Respiratory Rate 18 2017-08-27 BMI 25.54 kg/m2 2017-08-27 Blood pressure systolic 102 mmHg 2017-08-27 Blood pressure diastolic 74 mmHg 2017-08-27 MEDICATIONS Medication Instructions Dosage Frequency Start Date End Date Duration Status Trintellix 10 MG Orally Once a day 1 tablet 24h Active Trintellix 10 mg orally once a day 1 tablet 24h Aug, February, 30 days Active RESULTS No Results PROCEDURES No Known procedures INSTRUCTIONS MEDICATIONS ADMINISTERED No Known Medications MEDICAL (GENERAL) HISTORY Type Description Date Surgical History Tonsilectomy 2014
--- NOTE | 2019-04-21 07:48 | Progress Note-Pre Operative ---
Pre-Operative Progress Note H&P Reviewed The H&P was reviewed, patient examined and no changes noted. Date Seen by Provider: Apr 21, 2019 Time Seen by Provider: 07:45 Date H&P Reviewed: Apr 21, 2019 Time H&P Reviewed: 07:45 Pre-Operative Diagnosis: Deviated Nasal Septum, Bilat Hyper of Inf Turbs with Nasal Congestion NADEEM TURPIN MD Apr 21, 2019 07:48
[2019-04-21] MEDS ORDERED: PHENYLEPHRINE 0.5% NASAL SPR (NEO-SYNEPHRINE) REG ONE (07:52)
[2019-04-21] MEDS ORDERED: COCAINE HCL 4% 2 ML SYR ONE (07:52)
[2019-04-21] MEDS ORDERED: LIDOCAINE/EPI 1%-1:100,000 (XYLOCAINE) 20ML ONE (07:53)
[2019-04-21] MEDS ORDERED: LIDOCAINE PF 2% 5 ML (XYLOCAINE) VIAL ONE (07:57)
[2019-04-21] MEDS ORDERED: proPOfol 200 MG/20 ML (DIPRIVAN) VIAL IV ONE (07:57)
[2019-04-21] MEDS ORDERED: MIDAZOLAM 2 MG/2 ML (VERSED) VIAL ONE (07:57)
[2019-04-21] MEDS ORDERED: SEVOFLURANE (ULTANE) 15 ML INHAL SOLN ONE ×4 (07:57→09:27)
[2019-04-21] MEDS ORDERED: fentaNYL INJECTION 100 MCG/2 ML AMP ONE (07:58)
[2019-04-21] MEDS ORDERED: NEOSTIGMINE 1 MG/ML 5 ML SYRINGE ONE (08:03)
[2019-04-21] MEDS ORDERED: GLYCOPYRROLATE 0.2 MG/ML (ROBINUL) 2 ML VIAL ONE (08:03)
[2019-04-21] MEDS ORDERED: ROCURONIUM 10 MG/ML 5 ML SYRINGE IV ONE (08:03)
[2019-04-21] MEDS ORDERED: ONDANSETRON 4 MG/2 ML (SDV) Z0FRAN ONE (08:03)
[2019-04-21] MEDS ORDERED: LACTATED RINGERS 1,000 ML IV PRN (08:05)
[2019-04-21 08:09] LABS: BASOPHILS % (AUTO) 0 % (0-10); EOSINOPHILS # (AUTO) 0.1 10^3/uL (0.0-0.3); EOSINOPHILS % (AUTO) 3 % (0-10); HEMATOCRIT 37 % (35-52); HEMOGLOBIN 12.9 G/DL (11.5-16.0); LYMPHOCYTES # (AUTO) 1.7 X 10^3 (1.0-4.0); LYMPHOCYTES % (AUTO) 36 % (12-44); MEAN CORPUSCULAR HEMOGLOBIN 31 PG (25-34); MEAN CORPUSCULAR HGB CONC 35 G/DL (32-36); MEAN CORPUSCULAR VOLUME 89 FL (80-99); MEAN PLATELET VOLUME 9.4 FL (7.4-10.4); MONOCYTES # (AUTO) 0.6 X 10^3 (0.0-1.0); MONOCYTES % (AUTO) 13 % (0-12); NEUTROPHILS # (AUTO) 2.3 X 10^3 (1.8-7.8); NEUTROPHILS % (AUTO) 49 % (42-75); PLATELET COUNT 259 10^3/uL (130-400); RED CELL DISTRIBUTION WIDTH 11.7 % (10.0-14.5); WHITE BLOOD COUNT 4.8 10^3/uL (4.3-11.0)
[2019-04-21] MEDS ORDERED: DEXAMETHASONE 10 MG/ML (DECADRON) 1 ML VIAL ONE (08:11)
[2019-04-21] MEDS ORDERED: D5 1/2 NS W/KCL 20 MEQ/L 1,000 ML IV SCH (09:19)
--- NOTE | 2019-04-21 09:19 | Progress Note-Post Operative ---
Post-Operative Progess Note Surgeon (s)/Low Emission Automobile Designer (s) Surgeon NADEEM TURPIN MD Low Emission Automobile Designer n/a Pre-Operative Diagnosis Deviated Nasal Septum, Bilat Hyper of Inf Turbs with Nasal Congestion Post-Operative Diagnosis same Post-Op Procedure Note Date of Procedure: Apr 21, 2019 Name of Procedure Performed: Nasal Septoplasty, Bilat Red of Inf Turbs Description & Findings Description and Findings: n/a Anesthesia Type get Estimated Blood Loss minimal Packing none. Specimen(s) collected/removed nasal septum NADEEM TURPIN MD Apr 21, 2019 09:19
[2019-04-21] MEDS ORDERED: ONDANSETRON 4 MG/2 ML (SDV) Z0FRAN IVP PRN (09:30)
[2019-04-21] MEDS ORDERED: ACETAMINOPHEN 325 MG TABLET PO PRN (09:30)
[2019-04-21] MEDS ORDERED: HYDROmorphone 2 MG/ML VIAL (DILAUDID) IV ONE (09:30)
[2019-04-21] MEDS ORDERED: PROMETHAZINE INJ 25 MG/ML (PHENERGAN) AMP IVP PRN (09:30)
[2019-04-21] MEDS ORDERED: HYDROcodone/APAP 5 MG/325 MG (LORTAB) TAB PO PRN (09:30)
--- NOTE | 2019-04-21 10:19 | Anesthesia-General Post-Op ---
General Patient Condition Mental Status/LOC: Same as Preop Cardiovascular: Satisfactory Nausea/Vomiting: Absent Respiratory: Satisfactory Pain: Controlled Complications: Absent Post Op Complications Complications None Follow Up Care/Instructions Patient Instructions None needed. Anesthesia/Patient Condition Patient Condition Patient is doing well, no complaints, stable vital signs, no apparent adverse anesthesia problems. No complications reported per nursing. RADHA JACINTO CRNA Apr 21, 2019 10:19
[2019-04-21] MEDS ORDERED: HYDR-3812 PO (11:03)
[2019-04-21] MEDS ORDERED: AMOX-355 PO (11:03)
[2019-04-21] MEDS ORDERED: ONDANSETRON 4 MG/2 ML (SDV) Z0FRAN IVP ONE (11:45)
== END 2019-04-21 12:50 | disposition home or self-care (01) ==
LOC: SDC 07:29
PROVIDERS: ATTEND Otolaryngology Otolaryngology/Facial Plastic Surgery
DX: J34.2 Deviated nasal septum (principal); J34.3 Hypertrophy of nasal turbinates; F32.9 Major depressive disorder, single episode, unspecified; Z79.899 Other long term (current) drug therapy
CPT/HCPCS: 36415; 84703; 85025; 87081